=== PATIENT | female | born 1990 | race Caucasian/White ===

== ENCOUNTER → 2016-07-05 | Outpatient (CLI) | payer BC ==
[~2016-07-05] MED LIST: BCPILLS PO; INSPMPNVLG; INSULIN PUMP; NITR-5 PO; NITR1CAP16 PO; PHEN-876 PO
[2016-07-06 06:14] LABS: ESTIMATED AVERAGE GLUCOSE 128 mg/dl; HA1C FLAG Normal (Normal)
== END | disposition home or self-care (01) ==
LOC: C.LAB1850 15:29
PROVIDERS: ATTEND Internal Medicine Endocrinology, Diabetes & Metabolism
DX: E10.9 Type 1 diabetes mellitus without complications (principal)

== ENCOUNTER 2016-08-13 06:16 | Emergency (ER) | payer BC ==
[~2016-08-13] VITALS: Ht 167.6 cm; Wt 70.1 kg
[~2016-08-13 06:16] MED LIST changes: -INSPMPNVLG; -NITR1CAP16 PO
[2016-08-13 06:20] VITALS: TEMP 36.7; Ht 167.6 cm; Wt 70.1 kg
--- NOTE | 2016-08-13 06:36 | EMERGENCY ROOM VISIT NOTE ---
History Report prepared by Jn: Florina Duarte Under the Supervision of: Dr. Carlos Zavala M.D. First contact with patient: 06:28 Chief Complaint: SYNCOPE Stated Complaint: FAINTING-LIGHT HEADED-UPSET STOMACH History of Present Illness The patient is a 26 year old female who presents to the Emergency Room with complaints of a sudden syncopal episode that occurred just prior to arrival. The patient states that she woke up this morning and was preparing to change her cgm sensor. She states that she started feeling lightheaded and nauseous so she went to the bathroom. The patient states that she stumbled on her way to the bathroom. She states that she then inserted her CGM sensor and then had a loss of consciousness for 15 seconds. The patient states that her significant other caught her and laid her on the ground. She states that she also experienced ear ringing and vision disturbances. The patient denies any chest pain, shortness of breath, fever, diarrhea, or passing increased gas. The patient denies any recent issues with her blood glucose levels. She states that she tested her level and it was 174 mg/dL. The patient denies any previous syncopal episode. She states that she has been keeping up on her fluid intake. The patient reports normal menstrual cycles. Source of History: patient Onset: prior to arrival Position: other (global) Quality: other (syncopal episode) Timing: other (sudden) Associated Symptoms: + LOC, + nausea, No SOB, No chest pain, No diarrhea, No fevers Note: Associated Symptoms: vision disturbances, ear ringing, lightheadedness Review of Systems All systems have been listed, reviewed, and are negative other than those previously mentioned. Please see Additional Medical History Sheet. Past Medical & Surgical Medical Problems: (1) Diabetes mellitus type 1 Family History Patient reports no known family medical history. Social History Smoking Status: Never Smoker Smokeless Tobacco Use: No Alcohol Use: occasionally Marital Status: in relationship Housing Status: lives with significant other Occupation Status: employed Current/Historical Medications Scheduled Control Pills ( Control Pills), 1 TAB PO DAILY Insulin Aspart (novoLOG INSULIN PUMP ), 1 EA N/A UD Nitrofurantoin Monohyd Macro (Macrobid), 1 CAP PO BID Allergies Coded Allergies: No Known Allergies (Unverified , 08/13/16) Physical Exam Vital Signs Date Time Temp Pulse Resp B/P Pulse Ox O2 Delivery O2 Flow Rate FiO2 08/13/16 08:11 59 130/75 69 123/64 85 116/77 08/13/16 08:06 66 18 112/75 97 Room Air 08/13/16 07:25 81 08/13/16 06:46 Room Air 08/13/16 06:20 36.7 81 18 112/78 99 Room Air Physical Exam GENERAL: Patient awake, alert, oriented x 3. Patient follows commands. Patient does not appear toxic. Patient is adequately hydrated and well- nourished. SKIN: No erythema, pallor, cyanosis or rash HEENT: Normal head, pupils equal, reactive to light and accommodation. Ears normal. Oral cavity and posterior pharynx appear normal. Neck: Without adenopathy, no neck vein distention. LUNGS: Clear to auscultation. No wheezes, no rales, no rhonchi. HEART: No murmurs. No gallops. No rubs ABDOMEN: No masses, no rebound, no hepatomegaly or splenomegaly. EXTREMITIES: No signs of trauma. No pedal or pretibial edema. No calf or thigh tenderness. NEUROLOGIC: Cranial nerves II-XII within normal limits. No gross motor sensory function deficits. Medical Decision & Procedures Laboratory Results 08/13/16 06:40 08/13/16 06:40 Test 08/13/16 06:40 Red Blood Count 4.56 M/uL (4.2-5.4) Mean Corpuscular Volume 90.1 fL (80-100) Mean Corpuscular Hemoglobin 31.8 pg (25-34) Mean Corpuscular Hemoglobin Concent 35.3 g/dl (32-36) RDW Standard Deviation 40.8 fL (36.4-46.3) RDW Coefficient of Variation 12.4 % (11.5-14.5) Mean Platelet Volume 9.9 fL (7.4-10.4) Urine Color DK YELLOW Urine Appearance CLOUDY (CLEAR) Urine pH 6.0 (4.5-7.5) Urine Specific [place] 1.027 (1.000-1.030) Urine Protein 1+ (NEG) Urine Glucose (UA) NEG (NEG) Urine Ketones TRACE (NEG) Urine Occult Blood NEG (NEG) Urine Nitrite NEG (NEG) Urine Bilirubin NEG (NEG) Urine Urobilinogen NEG (NEG) Urine Leukocyte Esterase MODERATE (NEG) Urine WBC (Auto) >30 /hpf (0-5) Urine RBC (Auto) 0-4 /hpf (0-4) Urine Hyaline Casts (Auto) 10-30 /lpf (0-5) Urine Epithelial Cells (Auto) >30 /lpf (0-5) Urine Bacteria (Auto) 2+ (NEG) Urine Test NEG (NEG) Anion Gap 5.0 mmol/L (3-11) Est Creatinine Clear Calc Drug Dose 82.1 ml/min Estimated GFR () 92.9 Estimated GFR (Non- 80.2 BUN/Creatinine Ratio 19.0 (10-20) Calcium Level 8.4 mg/dl (8.5-10.1) Total Bilirubin 1.5 mg/dl (0.2-1) Aspartate Amino Transf (AST/SGOT) 9 U/L (15-37) Alanine Aminotransferase (ALT/SGPT) 17 U/L (12-78) Alkaline Phosphatase 54 U/L (45-117) Troponin I < 0.015 ng/ml (0-0.045) Total Protein 7.0 gm/dl (6.4-8.2) Albumin 3.7 gm/dl (3.4-5.0) Globulin 3.3 gm/dl (2.5-4.0) Albumin/Globulin Ratio 1.1 (0.9-2) Laboratory results as stated above per my review. ECG Indication: syncope Rate (beats per minute): 68 Rhythm: normal sinus (sinus arrhythmia) Findings: no acute ischemic change, other (normal axis) ED Course 0628: Past medical records reviewed. The patient was evaluated in room B10. A complete history and physical examination was performed. 0740: I reevaluated the patient and she is feeling better. I discussed all the exam findings with her and I discussed the treatment plan. She verbalized complete understanding and agreement. She is ready to go home. 0809: I reevaluated the patient and she is ready for discharge. Medical Decision Nurses notes reviewed. Medical history sheet reviewed. Differential diagnosis includes but is not limited to: vasovagal syncope, arrhythmia, metabolic disorder, TIA, CVA, hypoglycemia. The patient is here after what sounds like a vasovagal syncopal episode. Multiple labs, EKG were obtained. The patient was found to have a urinary tract infection. The patient did have some nausea prior to her syncope this morning. It is also possible that she was hypoglycemic at the time. I believe the patient is safe to return home. She was placed on a course of Macrobid. She will watch her blood sugar closely. She is to have repeat urinalysis in 5- 10 days. Impression Primary Impression: Vasovagal syncope Additional Impressions: Urinary tract infection Diabetes Scribe Attestation The scribe's documentation has been prepared under my direction and personally reviewed by me in its entirety. I confirm that the note above accurately reflects all work, treatment, procedures, and medical decision making performed by me. Departure Information Dispostion Home / Self-Care Prescriptions Nitrofurantoin Monohyd Macro (MACROBID) 100 Mg Cap 1 CAP PO BID for 10 Days, #20 CAP Prov: Carlos Zavala M.D. 08/13/16 Referrals Melissa Merino DO (PCP) Forms HOME CARE DOCUMENTATION FORM, IMPORTANT VISIT INFORMATION Patient Instructions My [facility] Additional Instructions 1 Macrobid twice a day for 5 days and then repeat urinalysis. Drink extra fluids. Check sugars frequently over the next 2-3 days. Return here immediately if you have another fainting episode. Problem Qualifiers
[2016-08-13] MEDS ORDERED: INSPMPNVLG (06:47)
[2016-08-13 06:52] LABS: HEMATOCRIT 41.1 % (37-47); MEAN CELL VOLUME 90.1 fL (80-100); MEAN CORPUSCULAR HEMOGLOBIN 31.8 pg (25-34); MEAN CORPUSCULAR HGB CONC 35.3 g/dl (32-36); MEAN PLATELET VOLUME 9.9 fL (7.4-10.4); PLATELET COUNT 269 K/uL (130-400); RED BLOOD COUNT 4.56 M/uL (4.2-5.4)
[2016-08-13 07:09] LABS: ALT/SGPT 17 U/L (12-78); AST/SGOT 9 U/L (15-37); BLOOD UREA NITROGEN 19 mg/dl (7-18); CALCIUM 8.4 mg/dl (8.5-10.1); CARBON DIOXIDE 28 mmol/L (21-32); CHLORIDE 106 mmol/L (98-107); CREATININE 0.98 mg/dl (0.60-1.20); GLUCOSE 185 mg/dl (70-99); POTASSIUM 4.3 mmol/L (3.5-5.1); SODIUM 139 mmol/L (136-145)
[2016-08-13 07:11] LABS: URINE APPEARANCE CLOUDY (CLEAR); URINE BILIRUBIN NEG (NEG); URINE COLOR DK YELLOW; URINE EPITHELIAL CELL AUTO >30 /lpf (0-5); URINE NITRITE NEG (NEG); URINE SPECIFIC GRAVITY 1.027 (1.000-1.030); UROBILINOGEN NEG (NEG); ZZUR CULT IF INDIC CLEAN CATCH YES
[2016-08-13 07:13] LABS: ALB/GLOB RATIO 1.1 (0.9-2); ALKALINE PHOSPHATASE 54 U/L (45-117)
[2016-08-13 07:15] LABS: MANUAL MICROSCOPIC REQUIRED? NO; REVIEW REQ? NO
[2016-08-13] MEDS ORDERED: NITR1CAP16 PO (07:56)
[2016-08-13 08:06] VITALS: O2SAT 97
[2016-08-13 08:11] VITALS: BP 116/77; PULSE 85
== END 2016-08-13 08:21 | disposition home or self-care (01) ==
LOC: C.EDB 06:17
DX: R55 Syncope and collapse (principal); N39.0 Urinary tract infection, site not specified; E10.9 Type 1 diabetes mellitus without complications; Z79.4 Long term (current) use of insulin

== ENCOUNTER → 2016-08-17 | Outpatient (CLI) | payer BC ==
[~2016-08-17] MED LIST changes: +INSPMPNVLG; -INSULIN PUMP; -NITR-5 PO; +NITR1CAP16 PO; -PHEN-876 PO
[2016-08-17 13:33] LABS: URINE APPEARANCE CLOUDY (CLEAR); URINE BILIRUBIN NEG (NEG); URINE COLOR DK YELLOW; URINE EPITHELIAL CELL AUTO >30 /lpf (0-5); URINE NITRITE NEG (NEG); URINE SPECIFIC GRAVITY 1.025 (1.000-1.030); UROBILINOGEN NEG (NEG); ZZUR CULT IF INDIC CLEAN CATCH YES
[2016-08-17 13:42] LABS: MANUAL MICROSCOPIC REQUIRED? NO; REVIEW REQ? NO
== END | disposition home or self-care (01) ==
LOC: C.LABSPEC 09:00
PROVIDERS: ATTEND Physician Assistant
DX: Z00.00 Encounter for general adult medical examination without abnormal findings (principal); N39.0 Urinary tract infection, site not specified

== ENCOUNTER → 2016-08-23 | Outpatient (CLI) | payer BC ==
[2016-08-23 16:50] LABS: URINE APPEARANCE CLEAR (CLEAR); URINE BILIRUBIN NEG (NEG); URINE COLOR DK YELLOW; URINE EPITHELIAL CELL AUTO 20-30 /lpf (0-5); URINE NITRITE NEG (NEG); URINE SPECIFIC GRAVITY 1.027 (1.000-1.030); UROBILINOGEN POS (NEG)
[2016-08-23 17:02] LABS: MANUAL MICROSCOPIC REQUIRED? NO; REVIEW REQ? NO
[2016-08-23 17:18] LABS: THYROID STIMULATING HORMONE 1.6 uIu/ml (0.300-4.500)
== END | disposition home or self-care (01) ==
LOC: C.LAB1850 15:34
PROVIDERS: ATTEND Physician Assistant
DX: N39.0 Urinary tract infection, site not specified (principal); R94.6 Abnormal results of thyroid function studies

== ENCOUNTER → 2016-10-19 | Outpatient (CLI) | payer BC ==
[~2016-10-19] MED LIST changes: -NITR1CAP16 PO
[2016-10-19 13:48] LABS: ESTIMATED AVERAGE GLUCOSE 123 mg/dl; HA1C FLAG Normal (Normal)
[2016-10-19 14:03] LABS: ALT/SGPT 17 U/L (12-78); BLOOD UREA NITROGEN 13 mg/dl (7-18); BUN/CREATININE RATIO 13.1 (10-20); CALCIUM 8.9 mg/dl (8.5-10.1); CARBON DIOXIDE 26 mmol/L (21-32); CHLORIDE 107 mmol/L (98-107); GLUCOSE 57 mg/dl (70-99); POTASSIUM 4.2 mmol/L (3.5-5.1); SODIUM 138 mmol/L (136-145)
[2016-10-19 14:06] LABS: ALB/GLOB RATIO 1.1 (0.9-2); ALKALINE PHOSPHATASE 47 U/L (45-117); AST/SGOT 11 U/L (15-37)
[2016-10-19 14:15] LABS: RATIO 3.6 mcg/mg (0-30.0)
== END | disposition home or self-care (01) ==
LOC: C.LABPBG 10:00
PROVIDERS: ATTEND Physician Assistant
DX: E10.9 Type 1 diabetes mellitus without complications (principal)

== ENCOUNTER → 2017-06-06 | Outpatient (CLI) | payer BC ==
[2017-06-06 18:21] LABS: ALBUMIN 3.6 gm/dl (3.4-5.0); ALT/SGPT 17 U/L (12-78); AST/SGOT 8 U/L (15-37); BLOOD UREA NITROGEN 18 mg/dl (7-18); CALCIUM 8.8 mg/dl (8.5-10.1); CARBON DIOXIDE 26 mmol/L (21-32); CREATININE 1.05 mg/dl (0.60-1.20); GLUCOSE 125 mg/dl (70-99); POTASSIUM 3.8 mmol/L (3.5-5.1); SODIUM 136 mmol/L (136-145)
[2017-06-06 18:32] LABS: ALKALINE PHOSPHATASE 46 U/L (45-117); CHOLESTEROL 158 mg/dl (0-200); LDL CHOLESTEROL CALCULATED 66 mg/dl; TOTAL PROTEIN 7.1 gm/dl (6.4-8.2)
== END | disposition home or self-care (01) ==
LOC: C.LAB1850 16:31
PROVIDERS: ATTEND Physician Assistant
DX: E10.9 Type 1 diabetes mellitus without complications (principal)

== ENCOUNTER 2018-10-10 07:24 | Inpatient (IN) ==
[2018-10-10] MEDS ORDERED: OXYTOCIN 30 UNITS/500 ML BAG IV PRN (07:33)
[2018-10-10 08:10] LABS: Hemoglobin 12.2 g/dL (12.0-16.0); Mean Platelet Volume 10.6 fL (7.4-10.4); Platelet Count 210 K/uL (130-400); RDW Standard Deviation 42.2 fL (36.4-46.3); Red Blood Count 3.82 M/uL (4.2-5.4); White Blood Count 14.21 K/uL (4.8-10.8)
--- NOTE | 2018-10-10 08:19 | History & Physical Report ---
Date of Service October 10, 2018 Assessment & Plan (1) Supervision of high risk in third trimester: 28-year-old G1, P0-0-0-0, currently at 39 weeks 5 days gestational age, presents for induction of labor secondary to T1DM. PLAN: -Fetus currently category 1 tracing. We will continue to monitor. -We will start oxytocin per regular protocol. -Vitals currently within normal limits. We will continue to monitor. -Blood Type A+, Rubella Immune, GBS negative. History of Present Illness Primary Care Provider: ANDREW PCP DATE OF ADMISSION: 10/10/2018 BRIEF HISTORY: 28-year-old G2, P0-0-0-0, currently at 39 weeks 5 days gestational age with ALBERT of 10/12/2018 by first trimester ultrasound. The patient presented to labor and delivery for a scheduled induction of labor. She presented yesterday evening for cervical ripening via Trujillo balloon and then was sent home and represents today. At time of admission, the patient was denying any regular contractions, vaginal bleeding, leakage of fluid, and reported normal movement. COURSE: The patient presented for care at approximately 7 weeks' gestational age. She has been normotensive throughout. She has had negative proteinuria (other than September 30 ER visit, see below), negative glucosuria, total weight gain for the is approximately 29 pounds. Normal Echo 06/26. Negative glucola at 28 weeks. Of note, pt is a type 1 diabetic that is managed with an insulin pump. Pt has been followed by diabetic protocol for this and has been under excellent control. Additionally, is also complicated by a left renal calculus that was evaluated in the emergency department September 30, 2018. Urinalysis showed +2 blood, +2 ketones, and +1 protein. Pt was sent home on PO antibiotics (Omnicef) and Tylenol for pain, which was well managed. Recently finished course of Omnicef 10/09. Pt was able to pass stone spontaneously. COMPLICATIONS: Type 1 DM, well controlled with insulin pump. Renal Calculus, managed as above. LABS: Blood type A positive, antibody screen negative, RPR nonreactive, rubella immune, hep B surface antigen negative, HIV negative, chlamydia negative, gonorrhea negative, cystic fibrosis carrier screening negative. Anatomy scan normal and complete. Cell free DNA within normal limits. Hep group B strep negative. GYNECOLOGIC HISTORY: LMP 12/29/2017, age of menarche 13. The patient reports regular 28 day cycles with normal duration and quantity of menses. Denies any history of sexually transmitted infections or abnormal Paps. PAST MEDICAL HISTORY: Significant for T1DM, currently on pump, otherwise unremarkable. PAST SURGICAL HISTORY: [place] Teeth. MEDICATIONS: 1. Tabs. 2. Novolog Insulin Pump 3. ASA 81 4. Omnicef finished course 10/09 ALLERGIES: NKDA SOCIAL HISTORY: The patient denies tobacco, alcohol or illicit drug use. FAMILY HISTORY: Maternal Aunt- Breast Ca. Otherwise noncontributory. Allergies Allergy/AdvReac Type Severity Reaction Status Date / Time No Known Allergies Allergy Verified 10/10/18 07:48 Home Medications Home Medications Medication Instructions Recorded Confirmed Type aspirin 81 mg PO DAILY 10/09/18 10/10/18 History insulin aspart U-100 [Novolog 100 unit SUBCUT DAILY 10/09/18 10/10/18 History U-100 Insulin aspart] vit-iron fum-folic ac 1 tab PO DAILY 10/09/18 10/10/18 History [ Vitamin] Patient History Medical History Supervision of high risk in third trimester Diabetes mellitus type 1 (Chronic) Kidney stone on left side passed approx 1 week ago at 39 weeks [place] teeth extracted Social History Preferred Language: [employer] [employer] Service [employer] Required: No Beliefs That Will Affect Care: None marital status: Current Living Situation: Spouse Feels Safe at Home: Yes Safety Concerns: Feels Safe At This Time Smoking Status: Never smoker Second Hand Exposure: No Hx Alcohol Use: No Hx Substance Use: No Review of Systems All systems reviewed & are unremarkable except as noted in HPI & below Physical Exam Constitutional: WD/WN, vitals as above Respiratory: normal respiratory effort, lungs clear to auscultation Cardiovascular: RRR, no murmur, no edema Gastrointestinal (Abdomen): Soft, nontender, gravid Skin: no rashes, warm and dry Psychiatric: A+Ox3, euthymic affect Genitourinary: Please see attending findings for dilation, effacement, station. Lymphatic: no LE swelling, no calf tenderness Results & Data Vital Signs (Past 12 Hours) Vital Signs Temp Pulse Resp BP 10/10/18 07:41 100 H 118/67 10/10/18 07:40 36.9 C 16 Supervising Physician Co-Signing Physician Notes Resident Physician Supervision Note: I was present with Dr. Pineda during the history and exam. I discussed the case with the resident and agree with the findings and plan as documented in the note. Any exceptions or clarifications are listed here: Type 1 diabetic at 39 (+) weeks GA for term induction. Cervical trujillo placed last PM, has not dislo dged. Pt with insulin pump. Will start pitocin and leave trujillo in place for now. Pt will manage sugars via pump with MD guidance. Will start insulin pump if needed. Documented By: Carlos Dawkins Jr, MD, FACOG Resident Activity Tracking Resident Involvement: Resident Care Provided Care Provided: OB Delivery
[2018-10-10 08:27] LABS: Mean Corpuscular Hgb Conc 35.9 g/dL (32-36)
[2018-10-10] MEDS: LACTATED RINGER'S 1,000 ML IV PRN ×2 (08:40→15:53)
[2018-10-10] MEDS: OXYTOCIN 30 UNITS/500 ML BAG IV PRN (08:41)
[2018-10-10] MEDS ORDERED: Nursing to Pharmacy Communication ONE (09:06)
[2018-10-10] MEDS ORDERED: DEXTROSE 50% 50 ML SYRINGE IV PRN (09:15)
[2018-10-10] MEDS ORDERED: INSULIN ASPART 100 UNITS/ML VIAL SC PRN (09:15)
[2018-10-10] MEDS ORDERED: GLUCOSE 40% GEL 15 GM TUBE PO PRN (09:15)
[2018-10-10] MEDS ORDERED: CARBOHYDRATES FOR HYPOGLYCEMIA PO PRN (09:15)
[2018-10-10] MEDS ORDERED: GLUCOSE 10 TABS/TUBE PO PRN (09:15)
[2018-10-10] MEDS ORDERED: GLUCAGON FOR INJ 1 MG VIAL SQ PRN (09:15)
[2018-10-10] MEDS: NovoLOG INSULIN PUMP SCH ×2 (11:50→16:54)
--- NOTE | 2018-10-10 13:28 | Labor Progress Brief Note ---
Date of Service October 10, 2018 Subjective aware of ctx's, trujillo dislodged Assessment & Plan (1) Supervision of high risk in third trimester: - tracing Cat I - sugars with good control - too high to rupture - continue pitocin Physical Exam Genitourinary: /-3, posterior Results & Data Vital Signs (Past 12 Hours) Vital Signs Temp Pulse Resp BP 10/10/18 12:42 81 113/75 10/10/18 11:41 88 113/74 10/10/18 11:04 36.8 C 16 10/10/18 10:41 90 118/77 10/10/18 09:41 89 122/72 10/10/18 08:40 92 H 122/76 10/10/18 07:41 100 H 118/67 10/10/18 07:40 36.9 C 16
--- NOTE | 2018-10-10 19:09 | Labor Progress Brief Note ---
Date of Service October 10, 2018 Subjective aware of the ctx's, 08/29 Assessment & Plan (1) Supervision of high risk in third trimester: - tracing Cat I - Pitocin at 19, ctx's q3 minutes - no cervical change, vtx to high/posterior to allow rupture of membranes - discussed with patient/ - recommend d/c pit, dinner and re-start pit at 0500 - will allow better sugar management - all questions answered. Physical Exam Genitourinary: Cervix: no change Results & Data Vital Signs (Past 12 Hours) Vital Signs Temp Pulse Resp BP 10/10/18 18:41 77 102/63 10/10/18 17:40 82 122/80 10/10/18 16:40 79 121/66 10/10/18 15:35 86 125/85 10/10/18 15:08 36.8 C 16 10/10/18 14:41 77 121/73 10/10/18 13:41 80 114/64 10/10/18 12:42 81 113/75 10/10/18 11:41 88 113/74 10/10/18 11:04 36.8 C 16 10/10/18 10:41 90 118/77 10/10/18 09:41 89 122/72 10/10/18 08:40 92 H 122/76 10/10/18 07:41 100 H 118/67 10/10/18 07:40 36.9 C 16
[2018-10-11] MEDS: OXYTOCIN 30 UNITS/500 ML BAG IV PRN ×2 (05:11→05:12)
[2018-10-11] MEDS: NovoLOG INSULIN PUMP SCH ×5 (05:59→21:15)
--- NOTE | 2018-10-11 06:45 | Labor Progress Brief Note ---
Date of Service October 11, 2018 Assessment & Plan (1) Supervision of high risk in third trimester: - tracing Cat I - good sugar control - restart pitocin - doing well Physical Exam Genitourinary: Cervix: /-2, AROM, clear, IUPC placed Results & Data Vital Signs (Past 12 Hours) Vital Signs Temp Pulse Resp BP 10/11/18 06:15 86 116/72 10/11/18 06:00 18 10/11/18 04:35 36.9 C 18 10/11/18 04:34 93 H 115/76 10/11/18 00:05 36.6 C 18 10/11/18 00:04 94 H 110/77 10/10/18 19:11 36.6 C 18 10/10/18 19:10 81 136/78
[2018-10-11] MEDS: LACTATED RINGER'S 1,000 ML IV PRN ×4 (09:33→22:34)
[2018-10-11] MEDS ORDERED: BUPIVACAINE 0.25% 30 ML VIAL ONE (09:52)
[2018-10-11] MEDS ORDERED: fentaNYL citrate 100 MCG/2 ML VIAL ONE ×2 (09:53→23:42)
[2018-10-11] MEDS ORDERED: ePHEDrine sulfate 50 MG/ML AMP ONE (09:53)
[2018-10-11] MEDS ORDERED: fentaNYL 2MCG/ML ROPIV 1.25MG/ML 100 ML BAG EPI ONE (09:54)
[2018-10-11] MEDS ORDERED: ONDANSETRON INJ 2 MG/ML 2 ML VIAL IV PRN (09:56)
[2018-10-11] MEDS ORDERED: NALBUPHINE HCL INJ 10 MG/ML AMP IV PRN (09:56)
[2018-10-11] MEDS ORDERED: ePHEDrine sulfate 50 MG/ML AMP IV PRN (09:56)
[2018-10-11] MEDS ORDERED: DiphenhydrAMINE HCL 50 MG/ML VIAL IV PRN (09:56)
[2018-10-11] MEDS ORDERED: NALOXONE HCL 0.4 MG/1 ML VIAL/CARP IV PRN (09:56)
[2018-10-11] MEDS ORDERED: NALOXONE HCL 1 MG in SODIUM CHLORIDE 0.9% 1000ML 1,000 ML IV PRN (09:56)
--- NOTE | 2018-10-11 10:24 | Anesthesiology Consultation ---
Date of Service October 11, 2018 Assessment & Plan (1) Encounter for pre-operative examination: Chart Review Chart Review: Patient NOT seen in Pre Admission Testing and Acceptable Risk for Labor Epidural Consults Requested none History Height/Weight Height: 5 ft 6 in Weight: 83.915 kg Allergies Allergy/AdvReac Type Severity Reaction Status Date / Time No Known Allergies Allergy Verified 10/10/18 07:48 Medications Home Medications Medication Instructions Recorded Confirmed Last Taken aspirin 81 mg PO DAILY 10/09/18 10/10/18 10/09/18 22:00 insulin aspart U-100 [Novolog 100 unit SUBCUT DAILY 10/09/18 10/10/18 10/10/18 07:00 U-100 Insulin aspart] vit-iron fum-folic ac 1 tab PO DAILY 10/09/18 10/10/18 10/10/18 07:00 [ Vitamin] Active Medications Generic Name Dose Route Start Last Admin Trade Name Freq PRN Reason Stop Dose Admin Lactated Ringer's 1,000 mls @ 125 mls/hr 10/10/18 07:33 10/11/18 10:27 Lr IV 10/12/18 07:32 125 mls/hr .Q8H PRN Administration L&D Protocol Protocol Oxytocin 30 units in 500 mls @ 9 mls/hr 10/10/18 07:36 10/11/18 08:00 Pitocin IV 10/12/18 07:35 0.54 units/hr .Q24H PRN 9 mls/hr Labor Induction/Augmentation Titration Protocol 0.54 UNITS/HR Insulin Aspart 1 ea 10/10/18 11:30 10/11/18 08:52 Novolog Insulin Pump N/A 11/09/18 11:29 Not Given ACHS CLEMENTE Protocol Past Medical History Medical History Supervision of high risk in third trimester Diabetes mellitus type 1 (Chronic) Kidney stone on left side passed approx 1 week ago at 39 weeks [place] teeth extracted Exercise / Class Metabolic Activity II 4-5 Yardwork/Stairs/Walk up hill Past Surgical History wisdom teeth Past Anesthesia History No Hx of Anesthesia Complications and No Family Hx of Anesthesia Complications History of PONV No Hx of PONV and No Hx of Motion Sickness Social History Smoking Status: Never smoker Hx Alcohol Use: No Hx Substance Use: No substance use type: does not use Physical Exam Vital Signs Last Vital Signs Temp 36.7 C 10/11/18 10:04 Pulse 80 10/11/18 10:04 Resp 20 10/11/18 10:04 BP 126/81 10/11/18 10:04 Testing Laboratory Results 10/10/18 07:54 10/11/18 10/11/18 10/11/18 08:46 04:35 00:25 POC Glucose 81 108 H 80
[2018-10-11] MEDS: fentaNYL 2MCG/ML ROPIV 1.25MG/ML 100 ML BAG EPI PRN (20:05)
[2018-10-11] MEDS ORDERED: LIDOCAINE HCL 2% MPF (LOCAL) 5 ML VIAL INFIL ONE (23:42)
[2018-10-12] MEDS: LACTATED RINGER'S 1,000 ML IV PRN (03:12)
[2018-10-12] MEDS: fentaNYL 2MCG/ML ROPIV 1.25MG/ML 100 ML BAG EPI PRN (03:14)
--- NOTE | 2018-10-12 05:47 | Obstetrical Progress Note ---
Date of Service October 12, 2018 Subjective patient has now progressed to full dilation after having a persistent anterior lip that was resolved with knee chest position. Moderate variables were resolved with amnioinfusion. She has now been pushing for over 2 hours & is showing signs of maternal exhaustion. the moderate variables have returned with good recovery in between. presenting part with caput at introitus and head at +3 station. will allow to push further. I offered vaccuum assistance and she is agreeable. Results & Data Vital Signs (Past 12 Hours) Vital Signs Temp Pulse Resp BP Pulse Ox 10/12/18 05:40 78 92 10/12/18 05:36 73 122/59 L 100 10/12/18 05:31 108 H 100 10/12/18 05:26 73 100 10/12/18 05:21 85 100 10/12/18 05:20 113 H 92 10/12/18 05:16 101 H 100 10/12/18 05:11 102 H 87 L 10/12/18 05:06 80 100 10/12/18 05:05 99 H 89 L 10/12/18 05:01 99 H 100 10/12/18 04:56 91 H 100 10/12/18 04:51 120 H 100 10/12/18 04:46 84 100 10/12/18 04:41 94 H 100 10/12/18 04:36 98 H 99 10/12/18 04:33 99 H 84 L 10/12/18 04:31 122 H 99 10/12/18 04:29 36.9 C 10/12/18 04:28 99 H 89 L 10/12/18 04:26 113 H 98 10/12/18 04:21 124 H 99 10/12/18 04:16 115 H 98 10/12/18 04:11 108 H 99 10/12/18 04:06 101 H 100 10/12/18 04:01 119 H 100 10/12/18 03:56 116 H 99 10/12/18 03:52 119 H 92 10/12/18 03:51 99 H 100 10/12/18 03:46 96 H 100 10/12/18 03:41 81 99 10/12/18 03:36 107 H 98 10/12/18 03:31 85 100 10/12/18 03:30 96 H 93 10/12/18 03:26 78 100 10/12/18 03:21 87 98 10/12/18 03:16 93 H 100 10/12/18 03:11 92 H 95 06 03:07 83 92 10/12/18 03:06 72 100 10/12/18 03:04 74 122/85 10/12/18 03:01 78 99 10/12/18 02:56 100 H 100 10/12/18 02:51 75 100 10/12/18 02:46 87 100 10/12/18 02:41 77 100 10/12/18 02:36 89 100 10/12/18 02:34 81 126/74 10/12/18 02:31 72 99 10/12/18 02:26 106 H 100 10/12/18 02:23 37.0 C 10/12/18 02:21 90 99 10/12/18 02:20 117 H 91 10/12/18 02:16 91 H 99 10/12/18 02:11 89 100 10/12/18 02:06 79 99 10/12/18 02:01 78 99 10/12/18 01:56 91 H 96 10/12/18 01:51 80 97 10/12/18 01:46 88 98 10/12/18 01:41 84 97 10/12/18 01:36 81 97 10/12/18 01:34 83 107/66 10/12/18 01:31 115 H 99 10/12/18 01:26 78 97 10/12/18 01:21 82 98 10/12/18 01:16 82 98 10/12/18 01:11 84 97 10/12/18 01:06 97 H 97 10/12/18 01:05 107 H 92 10/12/18 01:01 77 96 10/12/18 00:59 76 91 10/12/18 00:56 114 H 95 10/12/18 00:51 85 98 10/12/18 00:46 73 96 10/12/18 00:41 73 96 06 00:36 68 143/66 H 96 10/12/18 00:31 69 96 06 00:26 70 96 06 00:21 69 96 10/12/18 00:16 74 98 10/12/18 00:11 70 95 10/12/18 00:06 65 96 06/23/19 00:05 72 132/68 10/12/18 00:01 94 H 97 10/11/18 23:56 85 97 10/11/18 23:51 67 152/68 H 96 10/11/18 23:49 60 152/72 H 10/11/18 23:47 88 143/70 H 10/11/18 23:46 90 97 10/11/18 23:41 71 96 10/11/18 23:36 69 96 10/11/18 23:35 66 145/69 H 10/11/18 23:31 70 96 10/11/18 23:26 67 96 10/11/18 23:21 69 96 10/11/18 23:16 69 98 10/11/18 23:11 75 99 10/11/18 23:06 70 97 10/11/18 23:04 37.1 C 63 146/71 H 10/11/18 23:01 69 96 10/11/18 22:56 68 98 10/11/18 22:51 67 97 10/11/18 22:46 66 97 10/11/18 22:41 70 97 10/11/18 22:36 76 145/69 H 100 10/11/18 22:31 77 98 10/11/18 22:26 78 96 10/11/18 22:21 72 98 10/11/18 22:16 72 96 10/11/18 22:11 75 96 10/11/18 22:06 74 97 10/11/18 22:04 74 119/62 10/11/18 22:01 73 98 10/11/18 21:56 76 99 10/11/18 21:51 78 98 10/11/18 21:46 76 98 10/11/18 21:41 78 99 10/11/18 21:36 71 123/60 98 10/11/18 21:31 114 H 98 10/11/18 21:26 109 H 100 10/11/18 21:21 98 H 98 10/11/18 21:16 111 H 98 10/11/18 21:11 97 H 99 10/11/18 21:06 106 H 104/56 L 100 10/11/18 21:01 37.1 C 95 H 100 10/11/18 20:56 85 100 10/11/18 20:51 89 100 10/11/18 20:46 91 H 99 10/11/18 20:41 97 H 100 06 20:36 92 H 100 06 20:34 83 134/76 06 20:31 83 98 06 20:26 85 100 10/11/18 20:21 83 100 10/11/18 20:16 80 99 10/11/18 20:11 91 H 100 10/11/18 20:06 87 100 10/11/18 20:04 82 113/59 L 10/11/18 20:01 88 100 10/11/18 19:56 95 H 100 10/11/18 19:51 80 99 10/11/18 19:46 86 100 10/11/18 19:41 85 100 10/11/18 19:36 83 100 10/11/18 19:34 80 113/59 L 10/11/18 19:31 96 H 100 10/11/18 19:26 83 99 10/11/18 19:21 77 100 10/11/18 19:16 79 100 10/11/18 19:11 86 99 10/11/18 19:06 84 125/64 100 10/11/18 19:01 37.3 C 81 18 100 10/11/18 18:56 75 100 10/11/18 18:51 78 100 10/11/18 18:46 72 100 10/11/18 18:41 81 100 10/11/18 18:36 77 100 06 18:35 73 113/63 10/11/18 18:31 83 100 19 18:26 76 100 0619 18:21 75 100 0619 18:16 74 100 0619 18:11 76 100 062219 18:06 78 100 0619 18:04 83 107/64 19 18:01 78 100 06/19 17:56 89 100 19 17:51 72 100 19 17:46 82 100
[2018-10-12] MEDS ORDERED: OXYCODONE/ACETAMINOPHEN 5mg/325mg TAB PO PRN (07:15)
[2018-10-12] MEDS ORDERED: BENZOCAINE 20% AER SPR 82.5 GM CAN EXT PRN (07:15)
[2018-10-12] MEDS ORDERED: OXYTOCIN 10 UNITS/ML VIAL IM ONE (07:15)
[2018-10-12] MEDS ORDERED: SUPERCREAM 0.870% 15 GM JAR EXT PRN (07:15)
[2018-10-12] MEDS ORDERED: DIPHTHERIA/TETANUS/PERTUSSIS 0.5 ML SYR/VIAL IM ONE (07:15)
[2018-10-12] MEDS ORDERED: OXYTOCIN 30 UNITS/500 ML BAG IV PRN (07:15)
[2018-10-12] MEDS ORDERED: BISACODYL 10 MG SUPP PR PRN (07:15)
[2018-10-12] MEDS ORDERED: HYDROCORTISONE ACETATE 25 MG SUPP PR PRN (07:15)
[2018-10-12] MEDS ORDERED: ACETAMINOPHEN 325 MG TAB PO PRN (07:15)
--- NOTE | 2018-10-12 08:28 | Delivery Summary ---
DATE OF OPERATION: 10/12/2018 The patient is a 28-year-old 2, para 0-0-1-0 white female with known insulin-dependent diabetes mellitus, prior to , who presents at 39 and 5/7 weeks for an induction of labor because of her preexisting diabetes. She received a cervical [place] balloon on the evening of 10/09. She then received Pitocin augmentation over the day of the because of minimal cervical change and the cervical balloon still in place, the Pitocin was stopped, so she could eat. The Pitocin was then resumed in the morning of 10/11. Membranes were ruptured at that point. She requested epidural analgesia at 5 cm dilation and IUPC had been placed at that time for management of her Pitocin. She progressed to full dilation when moderate to severe variables started to occur. Amnioinfusion was started which resolved the variables. With multiple position changes she pushed for 2-1/2 hours. At that point, the caput was visible and the head was at +3 station. The patient was exhausted from pushing and effort was ineffective at this point. Secondarily, the deep variables returned. Vacuum assisted delivery was discussed and she is agreeable as was her . The vacuum was placed through 2 contractions easily bringing the head to the perineum. She then delivered the rest of the head occiput anterior on her own. There was a tight nuchal cord present which was cut and clamped prior to delivering the rest of the . The rest of the delivered easily and was initially placed on the mother's abdomen, but was then taken to the baby bed for further resuscitation which has been documented elsewhere. The placenta was then expressed intact with a 3-vessel cord. Bilateral sulcal tears were repaired with 3-0 chromic in the usual fashion. 1% lidocaine was used to anesthetize the area of the repair. Estimated blood loss was 500 mL. Mother and were then doing well after delivery. bleeding was controlled initially with IV dilute Pitocin; however, her IV infiltrated and she received 10 units of IM Pitocin as well. I attest to the content of the Intraoperative Record and any orders documented therein. Any exceptions are noted below. MTDD
[2018-10-12] MEDS ORDERED: INSULIN ASPART U SQ SCH (09:00)
--- NOTE | 2018-10-12 09:16 | Anesthesia Procedure Note ---
Date of Service October 12, 2018 Anesthesia Post Epidural Note Vital Signs Vital Signs: Temp Pulse Resp BP Pulse Ox 36.9 C 90 18 139/83 100 10/12/18 04:29 10/12/18 09:03 10/11/18 19:01 10/12/18 09:03 10/12/18 06:22 Pain Intensity Bilateral Abdomen: Pain Intensity: 1 Notes Mental Status: alert / awake / arousable Nausea / Vomiting: adequately controlled Pain: adequately controlled Airway Patency, RR, SpO2: stable & adequate BP & HR: stable & adequate Hydration State: stable & adequate Neuraxial Anesthesia: sensory block resolved Anesthetic Complications: no major complications apparent Epidural: Removed without complications and With tip intact Notes: Epidural Catheter removed without complications. Catheter tip intact. Site clean with no bleeding present. Nurse at bedside. Patient tolerated well
[2018-10-12] MEDS: NovoLOG INSULIN PUMP SCH ×3 (09:21→21:11)
[2018-10-12] MEDS: PRENATAL VITAMIN 1 TAB PO SCH (10:28)
[2018-10-12] MEDS: DOCUSATE SODIUM 100 MG CAP PO SCH ×2 (10:29→21:10)
[2018-10-13 07:00] LABS: Hematocrit (blood only) 27.4 % (37-47); Hemoglobin 9.7 g/dL (12.0-16.0); Mean Corpuscular Hgb Conc 35.4 g/dL (32-36); Mean Corpuscular Volume 89.5 fL (80-100); Mean Platelet Volume 9.9 fL (7.4-10.4); Platelet Count 185 K/uL (130-400); RDW Coefficient of Variation 13.1 % (11.5-14.5); RDW Standard Deviation 42.5 fL (36.4-46.3); Red Blood Count 3.06 M/uL (4.2-5.4); White Blood Count 18.17 K/uL (4.8-10.8)
--- NOTE | 2018-10-13 07:00 | Obstetrical Progress Note ---
Date of Service <Brandon Pineda, DO - Last Filed: 10/13/18 07:05> October 13, 2018 Assessment & Plan <Brandon Pineda DO - Last Filed: 10/13/18 07:05> (1) (spontaneous vaginal delivery): -vital signs reviewed and WNL -Hgb 9.7 --> ferrous sulfate -Blood type: A+, GBS-, Rubella Immune -pt doing well clinically -encourage ambulation, monitor and control pain with motrin tylenol, cont regular diet, monitor lochia -cont encourage breast feeding -anticipate d/c tomorrow Subjective <Brandon Pineda, DO - Last Filed: 10/13/18 07:05> 28 y/o PPD1 found in bed this morning in NAD. Reports no acute overnight events. Pt states that she has no pain other than appropriate soreness. Tolerating PO intake without N/V. Able to ambulate without issue. She is breast feeding without issue. No issues with voiding, no BM yet. No other acute concerns or complaints. Review of Systems All systems reviewed & are unremarkable except as noted in HPI & below Physical Exam <Brandon Pineda, DO - Last Filed: 10/13/18 07:05> Constitutional WD/WN, vitals as above Respiratory normal respiratory effort, lungs clear to auscultation Cardiovascular RRR, no murmur, no edema Gastrointestinal (Abdomen) mild abd tenderness fundus 1 below U, please correlate with attending findings Skin no rashes, warm and dry Psychiatric A+Ox3, euthymic affect Lymphatic no LE swelling, no calf tenderness Results & Data <Brandon Pineda, DO - Last Filed: 10/13/18 07:05> Vital Signs (Past 12 Hours) Vital Signs Temp Pulse Resp BP 10/13/18 04:20 36.7 C 80 18 104/69 10/13/18 00:15 36.6 C 90 18 115/74 10/12/18 20:05 36.8 C 106 H 20 118/71 Laboratory Results Laboratory Results - last 24 hr 10/12/18 10/12/18 10/13/18 12:56 16:53 05:53 WBC RBC Hgb Hct MCV MCH MCHC RDW Std Deviation RDW Coeff of [place] Plt Count MPV POC Glucose 159 H 76 57 L* 10/13/18 06:50 WBC 18.17 H RBC 3.06 L Hgb 9.7 L Hct 27.4 L MCV 89.5 MCH 31.7 MCHC 35.4 RDW Std Deviation 42.5 RDW Coeff of [place] 13.1 Plt Count 185 MPV 9.9 POC Glucose Medications Administered Current Inpatient Medications Acetaminophen (Tylenol) 650 mg PO Q6H PRN PRN Reason: Pain/MEZA/Fever Stop: 11/11/18 07:14 Benzocaine (Dermoplast Pain Relieving [place]) 1 appln EXT PRN PRN PRN Reason: Perineal Discomfort Stop: 11/11/18 07:14 Last Admin: 10/12/18 10:29 Dose: 1 appln Documented by: Bisacodyl (Dulcolax) 5 mg PO 1999 [facility] Stop: 10/13/18 20:01 Bisacodyl (Dulcolax) 10 mg NE DAILY PRN PRN Reason: No BM on 2nd post- day Stop: 11/11/18 07:14 Cocaine HCl (Supercream 0.870%) 1 gm EXT BID PRN PRN Reason: Hemorrhoidal Inflammation Stop: 10/26/18 07:14 Last Admin: 10/12/18 10:28 Dose: 1 gm Documented by: Dextrose (Dextrose 50%) 25 - 50 ml IV UD PRN; Protocol PRN Reason: Hypoglycemia Protocol Stop: 11/09/18 09:14 Docusate Sodium (Colace) 100 mg PO BID [facility] Stop: 11/11/18 08:59 Last Admin: 10/12/18 21:10 Dose: 100 mg Documented by: Glucagon (Glucagen) 1 mg SQ UD PRN; Protocol PRN Reason: Hypoglycemia Protocol Stop: 11/09/18 09:14 Glucose (Glucose 40%) 15 - 30 gm PO UD PRN; Protocol PRN Reason: Hypoglycemia Protocol Stop: 11/09/18 09:14 Glucose (Dex4 Glucose) 4 - 8 tabs PO UD PRN; Protocol PRN Reason: Hypoglycemia Protocol Stop: 11/09/18 09:14 Hydrocortisone (Anusol Hc) 25 mg NE BID PRN PRN Reason: Hemorrhoidal Inflammation Stop: 11/11/18 07:14 Oxytocin (Pitocin) 30 units in 500 mls @ 333.333 mls/hr IV .Q1H30M PRN; Protocol PRN Reason: Bleeding Control Stop: 11/09/18 07:32 Oxytocin (Pitocin) 30 units in 500 mls @ 21 mls/hr IV .[id number] PRN; Protocol PRN Reason: Labor Induction/Augmentation Stop: 11/09/18 07:35 Last Titration: 10/12/18 03:46 Dose: 1.26 units/hr, 21 mls/hr Documented by: Oxytocin (Pitocin) 30 units in 500 mls @ 333.333 mls/hr IV .Q1H30M PRN; Protocol PRN Reason: Bleeding Control Stop: 11/11/18 07:14 Ibuprofen (Motrin) 600 mg PO Q4H PRN PRN Reason: Pain/MEZA/Cramping/Fever Stop: 11/11/18 07:14 Insulin Aspart (Novolog Insulin Pump) 1 ea N/A ACHS [facility]; Protocol Stop: 11/09/18 11:29 Last Admin: 10/12/18 21:11 Dose: Not Given Documented by: Insulin Aspart (Novolog Aspart) 0 units SC PRN PRN PRN Reason: Hyperglycemia Protocol Stop: 11/09/18 09:14 Miscellaneous (Carbohydrates For Hypoglycemia) 15 - 30 gm PO UD PRN PRN Reason: Hypoglycemia Treatment Stop: 11/09/18 09:14 Oxycodone/Acetaminophen (Percocet 5mg/325mg) 1 tab PO Q4H PRN PRN Reason: Pain not relieved by... Stop: 10/26/18 07:14 Prenat Multivit/Education Rn/Iron/Folic Ac ( Vitamin) 1 tab PO [facility] Stop: 11/11/18 08:59 Last Admin: 10/12/18 10:28 Dose: 1 tab Documented by: <Tania Cortez MD, FACOG - Last Filed: 10/13/18 07:10> Co-Signing Physician Notes Resident Physician Supervision Note: I interviewed and examined the patient. Discussed with Dr. Traci Pineda and agree with findings and plan as documented in the note. Any exceptions or clarifications are listed here: [None] Documented By: Tania Cortez MD, FACOG Resident Activity Tracking <Brandon Pineda, DO - Last Filed: 10/13/18 07:05> Resident Involvement: Resident Care Provided Care Provided: Adult Hospital Medicine
[2018-10-13] MEDS: FERROUS SULFATE 325 MG TAB PO SCH (08:42)
[2018-10-13] MEDS: DOCUSATE SODIUM 100 MG CAP PO SCH ×2 (08:42→20:03)
[2018-10-13] MEDS: PRENATAL VITAMIN 1 TAB PO SCH (08:42)
[2018-10-13] MEDS: IBUPROFEN 600 MG TAB PO PRN (08:42)
[2018-10-13] MEDS: NovoLOG INSULIN PUMP SCH ×2 (09:56→12:00)
[2018-10-13] MEDS ORDERED: BISACODYL 5 MG TABEC PO SCH (20:00)
[2018-10-14 06:17] LABS: Hemoglobin 9.2 g/dL (12.0-16.0)
--- NOTE | 2018-10-14 06:39 | Obstetrical Progress Note ---
Date of Service <Brandonkirti Pineda - Last Filed: 10/14/18 06:42> October 14, 2018 Assessment & Plan <Brandonsagar Pineda DO - Last Filed: 10/14/18 06:42> (1) (spontaneous vaginal delivery): -vital signs reviewed and WNL -last Hgb 9.7 --> ferrous sulfate -Blood type: A+, GBS-, Rubella Immune -pt doing well clinically -encourage ambulation, monitor and control pain with motrin tylenol, cont regular diet, monitor lochia -cont encourage breast feeding -plan for d/c today Subjective <Brandonsagar Pineda DO - Last Filed: 10/14/18 06:42> 28 y/o PPD2 found in bed this morning in NAD. Reports no acute overnight events. Pt states that she has no pain other than appropriate soreness. Tolerating PO intake without N/V. Able to ambulate without issue. She is breast feeding without issue. No issues with voiding, no BM yet but passing gas. Pt notes hemorrhoid, has tried cream which seems to have helped (decreasing in size and pain), but has not tried sitz bath. No other acute concerns or complaints. Pt ok with plan for d/c today. Review of Systems All systems reviewed & are unremarkable except as noted in HPI & below Physical Exam <Brandonkirti Pineda - Last Filed: 10/14/18 06:42> Constitutional WD/WN, vitals as above Respiratory normal respiratory effort, lungs clear to auscultation Cardiovascular RRR, no murmur, no edema Gastrointestinal (Abdomen) mild abd tenderness Fundus at U, please correlate with attending findings Skin no rashes, warm and dry Psychiatric A+Ox3, euthymic affect Lymphatic no LE swelling, no calf tenderness Results & Data <Brandon Pineda DO - Last Filed: 10/14/18 06:42> Vital Signs (Past 12 Hours) Vital Signs Temp Pulse Resp BP Pulse Ox 10/13/18 23:14 36.8 C 85 16 121/76 99 10/13/18 19:19 36.7 C 85 18 127/75 99 Laboratory Results Laboratory Results - last 24 hr 10/13/18 10/13/18 10/14/18 00:48 06:50 05:52 WBC 18.17 H RBC 3.06 L Hgb 9.7 L 9.2 L Hct 27.4 L 26.0 L MCV 89.5 MCH 31.7 MCHC 35.4 RDW Std Deviation 42.5 RDW Coeff of [place]ira 13.1 Plt Count 185 MPV 9.9 POC Glucose 112 H Medications Administered Current Inpatient Medications Acetaminophen (Tylenol) 650 mg PO Q6H PRN PRN Reason: Pain/MEZA/Fever Stop: 11/11/18 07:14 Benzocaine (Dermoplast Pain Relieving [place]) 1 appln EXT PRN PRN PRN Reason: Perineal Discomfort Stop: 11/11/18 07:14 Last Admin: 10/12/18 10:29 Dose: 1 appln Documented by: Bisacodyl (Dulcolax) 10 mg SD DAILY PRN PRN Reason: No BM on 2nd post- day Stop: 11/11/18 07:14 Cocaine HCl (Supercream 0.870%) 1 gm EXT BID PRN PRN Reason: Hemorrhoidal Inflammation Stop: 10/26/18 07:14 Last Admin: 10/12/18 10:28 Dose: 1 gm Documented by: Dextrose (Dextrose 50%) 25 - 50 ml IV UD PRN; Protocol PRN Reason: Hypoglycemia Protocol Stop: 11/09/18 09:14 Docusate Sodium (Colace) 100 mg PO BID [facility] Stop: 11/11/18 08:59 Last Admin: 10/13/18 20:03 Dose: 100 mg Documented by: Ferrous Sulfate (Feosol) 325 mg PO QAM [facility] Stop: 11/12/18 08:59 Last Admin: 10/13/18 08:42 Dose: 325 mg Documented by: Glucagon (Glucagen) 1 mg SQ UD PRN; Protocol PRN Reason: Hypoglycemia Protocol Stop: 11/09/18 09:14 Glucose (Glucose 40%) 15 - 30 gm PO UD PRN; Protocol PRN Reason: Hypoglycemia Protocol Stop: 11/09/18 09:14 Glucose (Dex4 Glucose) 4 - 8 tabs PO UD PRN; Protocol PRN Reason: Hypoglycemia Protocol Stop: 11/09/18 09:14 Hydrocortisone (Anusol Hc) 25 mg SD BID PRN PRN Reason: Hemorrhoidal Inflammation Stop: 11/11/18 07:14 Oxytocin (Pitocin) 30 units in 500 mls @ 333.333 mls/hr IV .Q1H30M PRN; Protocol PRN Reason: Bleeding Control Stop: 11/09/18 07:32 Oxytocin (Pitocin) 30 units in 500 mls @ 21 mls/hr IV .[id number] PRN; Protocol PRN Reason: Labor Induction/Augmentation Stop: 11/09/18 07:35 Last Titration: 10/12/18 03:46 Dose: 1.26 units/hr, 21 mls/hr Documented by: Oxytocin (Pitocin) 30 units in 500 mls @ 333.333 mls/hr IV .Q1H30M PRN; Protocol PRN Reason: Bleeding Control Stop: 11/11/18 07:14 Ibuprofen (Motrin) 600 mg PO Q4H PRN PRN Reason: Pain/MEZA/Cramping/Fever Stop: 11/11/18 07:14 Last Admin: 10/13/18 08:42 Dose: 600 mg Documented by: Insulin Aspart (Novolog Insulin Pump) 1 ea N/A [facility]; Protocol Stop: 11/09/18 11:29 Last Admin: 10/13/18 12:00 Dose: Not Given Documented by: Insulin Aspart (Novolog Aspart) 0 units SC PRN PRN PRN Reason: Hyperglycemia Protocol Stop: 11/09/18 09:14 Miscellaneous (Carbohydrates For Hypoglycemia) 15 - 30 gm PO UD PRN PRN Reason: Hypoglycemia Treatment Stop: 11/09/18 09:14 Oxycodone/Acetaminophen (Percocet 5mg/325mg) 1 tab PO Q4H PRN PRN Reason: Pain not relieved by... Stop: 10/26/18 07:14 Prenat Multivit/Chrome Tanning Drum Operator/Iron/Folic Ac ( Vitamin) 1 tab PO [facility] Stop: 11/11/18 08:59 Last Admin: 10/13/18 08:42 Dose: 1 tab Documented by: <Lucina Jacome MD, FACOG - Last Filed: 10/14/18 07:45> Co-Signing Physician Notes Resident Physician Supervision Note: I interviewed and examined the patient. Discussed with Dr. Pineda and agree with findings and plan as documented in the note. Any exceptions or clarifications are listed here: Doing well. Plan d/c. Instructions given. f/u discussed. Discussed treatment for hemorrhoid. Documented By: Lucina Jacome MD, FACOG Resident Activity Tracking <Brandon Pineda, - Last Filed: 10/14/18 06:42> Resident Involvement: Resident Care Provided Care Provided: OB Delivery
[2018-10-14] MEDS: FERROUS SULFATE 325 MG TAB PO SCH (08:24)
[2018-10-14] MEDS: DOCUSATE SODIUM 100 MG CAP PO SCH (08:24)
[2018-10-14] MEDS: PRENATAL VITAMIN 1 TAB PO SCH (08:24)
[2018-10-14] MEDS: NovoLOG INSULIN PUMP SCH ×3 (08:25→16:16)
[2018-10-14] MEDS: IBUPROFEN 600 MG TAB PO PRN ×2 (08:38→16:15)
--- NOTE | 2018-10-17 01:57 | Discharge Summary ---
PRINCIPAL DIAGNOSES: Intrauterine at 40 weeks gestation, type 1 diabetic, longstanding unfavorable cervix. PRINCIPAL PROCEDURE: Vacuum-assisted vaginal delivery. HISTORY OF PRESENT ILLNESS: The patient is a 28-year-old 2, para 0-0-1-0 white female with a known type 1 diabetes mellitus who presented at 40 weeks for induction of labor. She had an unfavorable cervix. She received a cervical balloon on the evening of 10/09/2018. She received Pitocin augmentation over the day of October 10 & because of minimal cervical change with the cervical balloon she was rested overnight. The Pitocin was then restarted on 10/11/2018. Membranes were ruptured at that point as she was 4 cm dilated. She received epidural analgesia after she progressed to full dilation. She pushed for 2-1/2 hours and because of persistent deep variables and maternal exhaustion, the vacuum was placed at the perineum and through 2 contractions the infant was delivered easily. A tight nuchal cord was then cut and clamped prior to delivering the rest of the . Her recovery was uneventful. She was eating regular food that evening and was ambulating and voiding without difficulty. She was sent home with the usual instructions. CHERYL
== END 2018-10-14 17:50 | disposition home or self-care (01) | DRG 806 ==
LOC: 4S1 07:24 → 4S2 10-12 11:21

== ENCOUNTER 2020-05-04 16:51 | Inpatient (IN) ==
[2020-05-04] MEDS ORDERED: OXYTOCIN 30 UNITS/500 ML BAG IV PRN ×2 (17:18→19:00)
[2020-05-04] MEDS: LACTATED RINGER'S 1,000 ML IV PRN (17:40)
[2020-05-04 18:03] LABS: Hematocrit (blood only) 36.7 % (37-47); Hemoglobin 12.8 g/dL (12.0-16.0); Mean Corpuscular Hemoglobin 32.2 pg (25-34); Mean Corpuscular Hgb Conc 34.9 g/dL (32-36); Mean Corpuscular Volume 92.2 fL (80-100); Mean Platelet Volume 10.7 fL (7.4-10.4); Platelet Count 203 K/uL (130-400); RDW Coefficient of Variation 13.2 % (11.5-14.5); RDW Standard Deviation 44.8 fL (36.4-46.3); Red Blood Count 3.98 M/uL (4.2-5.4); White Blood Count 12.34 K/uL (4.8-10.8)
--- NOTE | 2020-05-04 18:58 | History & Physical Report ---
Date of Service May 04, 2020 Assessment & Plan (1) Type 1 diabetes mellitus affecting , antepartum: Managing diabetes with own pump and glucose monitor. Offered home for the night vs stay and begin pitocin ripening overnight. Patient elects to stay. tachy likely 2/2 dehydration given ketones in urine and prompt response to IV hydration. Admission and Anticipated Discharge Date Admission Date: May 04, 2020 History of Present Illness Chief Complaint: Patient was planned for IOL tomorrow due to T1DM, at 39w3d; however sent over from office as tachycardia was noted on end-of-day NST. Primary Care Provider: Melissa Merino DO Allergies Allergy/AdvReac Type Severity Reaction Status Date / Time No Known Drug Allergies Allergy Unknown NONE Verified 05/04/20 15:49 Home Medications Medication Instructions Recorded Confirmed Type Vitamin 1 tab PO DAILY 10/09/18 05/04/20 History glucagon HCl 1 mg/mL solution for 1 mg SUBCUT PRN #1 ea 11/03/18 05/04/20 Rx injection insulin syringe-needle U-100 1 mL #10 ea 11/03/18 05/04/20 History 31 gauge x 5/16" Contour Next Test Strips #700 ea NS 12/26/18 05/04/20 Rx Dexcom G6 Mastic Worker #1 ea NS 03/25/19 05/04/20 Rx Dexcom G6 Sensor #3 ea NS 03/25/19 05/04/20 Rx Dexcom G6 Transmitter #1 ea NS 03/25/19 05/04/20 Rx insulin aspart U-100 100 unit/mL See Rx Instructions SUBCUT DAILY 04/28/19 05/04/20 Rx subcutaneous solution #9 vial aspirin 81 mg tablet,delayed 81 mg PO DAILY 10/27/19 05/04/20 History release Patient History Medical History (Updated 03/03/20 @ 13:16 by Carlos Dawkins Jr, MD, FACOG) Diabetes mellitus type 1 Encounter for anatomic survey History of chicken pox Hypoglycemia unawareness in type 1 diabetes mellitus Kidney stone on left side passed approx 1 week ago at 39 weeks Surgical History [place] teeth extracted Family History Unknown Breast cancer Aunt Breast cancer Mother No known health problems Father No known health problems Sister No known health problems Grandfather Parkinson's disease Denies family history of Ovarian cancer Prostate cancer Myocardial infarction Colorectal cancer Social History Smoking Status: Never smoker Second Hand Exposure: No; Hx Alcohol Use: No Hx Substance Use: No Preferred Language: Montene[place] Visual Impairment: No Limitations Hearing Ability: Normal Tool And Die 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 Feels Safe at Home: Yes caffeine: No during the past year weight has: remained stable Dental Care, Regularly: Yes Physical Activity Frequency: Daily Seatbelt Use: always Sunscreen Use: Yes Assistive Devices: None Physical Exam Physical Exam: Cervix 3/th/hi/post/firm No LOF FHT Tachy with good variability and accels on arrival. Urine dip +ketones. IVF started on arrival. tones improved to baseline 150 mod chance +acc -dec within 2 hours. [place] irritable at most, not painful to patient. Results & Data ([facility]) Vital Signs (Past 12 Hours) Vital Signs Pulse BP 05/04/20 16:57 97 H 118/77 Code Status & VTE Plan VTE Prophylaxis Plan VTE Prophylaxis will be ordered: Yes Coding Level of Care Code None Diagnoses Type 1 diabetes mellitus affecting , antepartum O24.019
[2020-05-05] MEDS: LACTATED RINGER'S 1,000 ML IV PRN ×6 (00:40→19:29)
[2020-05-05] MEDS ORDERED: ePHEDrine sulfate 50 MG/ML AMP IV PRN ×2 (05:17→23:10)
[2020-05-05] MEDS ORDERED: NALOXONE HCL 1 MG in SODIUM CHLORIDE 0.9% 1000ML 1,000 ML IV PRN ×2 (05:17→23:10)
[2020-05-05] MEDS ORDERED: diphenhydrAMINE 50 MG/ML VIAL IV PRN ×2 (05:17→23:10)
[2020-05-05] MEDS ORDERED: ONDANSETRON INJ 2 MG/ML 2 ML VIAL IV PRN ×2 (05:17→23:10)
[2020-05-05] MEDS ORDERED: NALOXONE HCL 0.4 MG/1 ML VIAL/CARP IV PRN ×2 (05:17→23:10)
--- NOTE | 2020-05-05 05:19 | Anesthesiology Consultation ---
Date of Service May 05, 2020 Covid 19 negative on 05/04/20. Assessment & Plan Chart Review Chart Review: Patient NOT seen in Pre Admission Testing and Acceptable Risk for Labor Epidural Consults Requested none ASA ASA2 Proposed Anesthesia Anesthesia Type: Labor Epidural and CSE Risk / Benefits Reviewed With: PT / POA / Parent / Guardian, Accepts Plan and Informed Consent Obtained History Height/Weight Height: 5 ft 6 in Weight: 84.368 kg Allergies Allergy/AdvReac Type Severity Reaction Status Date / Time No Known Drug Allergies Allergy Unknown NONE Verified 05/04/20 15:49 Medications Home Medications Medication Instructions Recorded Confirmed Last Taken Vitamin 1 tab PO DAILY 10/09/18 05/04/20 05/04/20 08:00 glucagon HCl 1 mg/mL solution for 1 mg SUBCUT PRN #1 ea 11/03/18 05/04/20 Unknown injection insulin syringe-needle U-100 1 mL #10 ea 11/03/18 05/04/20 Unknown 31 gauge x 5/16" Contour Next Test Strips #700 ea NS 12/26/18 05/04/20 Unknown Dexcom G6 Tool Technician #1 ea NS 03/25/19 05/04/20 Unknown Dexcom G6 Sensor #3 ea NS 03/25/19 05/04/20 Unknown Dexcom G6 Transmitter #1 ea NS 03/25/19 05/04/20 Unknown insulin aspart U-100 100 unit/mL See Rx Instructions SUBCUT DAILY 04/28/1904/2205/04/20 19:29 subcutaneous solution #9 vial see notes aspirin 81 mg tablet,delayed 81 mg PO DAILY 10/27/19 05/04/20 05/04/20 08:00 release Active Medications Generic Name Dose Route Start Last Admin Trade Name Freq PRN Reason Stop Dose Admin Lactated Ringer's 1,000 mls @ 125 mls/hr 05/04/20 17:18 05/05/20 05:14 Lr IV 05/06/20 17:17 999 mls/hr .Q8H PRN Administration L&D Protocol Protocol Oxytocin 30 units in 500 mls @ 3 mls/hr 05/04/20 19:00 05/04/20 22:00 Pitocin IV 05/06/20 18:59 0.18 units/hr .Q24H PRN 3 mls/hr Labor Induction/Augmentation Titration Protocol 0.18 UNITS/HR NPO Date Last Intake of Fluids: 05/04/20 Time Last Intake of Fluids: 21:00 Date Last Intake of Solids: 05/04/20 Time Last Intake of Solids: 21:00 Past Medical History Medical History Diabetes mellitus type 1 Encounter for anatomic survey History of chicken pox Hypoglycemia unawareness in type 1 diabetes mellitus Kidney stone on left side passed approx 1 week ago at 39 weeks Exercise / Class Metabolic Activity II 4-5 Yardwork/Stairs/Walk up hill Past Family History Family History Unknown Breast cancer Aunt Breast cancer Mother No known health problems Father No known health problems Sister No known health problems Grandfather Parkinson's disease Denies family history of Ovarian cancer Prostate cancer Myocardial infarction Colorectal cancer Past Surgical History Surgical History [place] teeth extracted Past Anesthesia History No Hx of Anesthesia Complications and No Family Hx of Anesthesia Complications History of PONV No Hx of PONV and No Hx of Motion Sickness Social History Smoking Status: Never smoker Hx Alcohol Use: No Hx Substance Use: No substance use type: does not use Review of Systems no chest pain or sob Physical Exam Vital Signs Last Vital Signs Temp 36.7 C 05/05/20 00:01 Pulse 86 05/05/20 05:17 Resp 18 05/05/20 02:55 BP 112/68 05/05/20 02:54 Pulse Ox 96 05/05/20 05:17 ENMT Mouth: no TMJ abnormality Thyromental Distance: > or= 3.5 Finger Breadths Mallampati Class: II Neck normal visual inspection Respiratory normal respiratory effort Auscultation: lungs clear to auscultation bilaterally Cardiovascular Rate/Rhythm: regular rate and regular rhythm Musculoskeletal Spine: normal cervical ROM Neurologic moves all extremities Psychiatric Orientation: alert and oriented x 3 Testing Laboratory Results 05/04/20 17:50 05/05/20 02:10 POC Glucose 86
[2020-05-05] MEDS: fentaNYL 2MCG/ML ROPIVACAINE 1.25MG/ML 100 ML BAG EPI PRN ×3 (05:38→21:17)
--- NOTE | 2020-05-05 07:09 | Labor Progress Brief Note ---
Date of Service May 05, 2020 Subjective Comfortable with epidural. Assessment & Plan (1) Type 1 diabetes mellitus affecting , antepartum: Continue IOL, pitocin, epidural, self-adjustment of CGM/Insulin to maintain within goal range. Admission and Anticipated Discharge Date Admission Date: May 04, 2020 Physical Exam Physical Exam: 50/-2/SROM for clear fluid early this morning/vertex palpable FHT Cat 1 [place] Q3 Pit @ 7 Results & Data ([facility]) Vital Signs (Past 12 Hours) Vital Signs Temp Pulse Resp BP Pulse Ox 05/05/20 07:07 88 98 05/05/20 07:02 70 95 05/05/20 06:57 82 98 05/05/20 06:52 81 96 05/05/20 06:51 72 90/59 L 05/05/20 06:47 95 H 98 05/05/20 06:42 89 97 05/05/20 06:39 96 H 80/55 L 05/05/20 06:37 96 H 98 05/05/20 06:32 90 100 05/05/20 06:27 74 94 05/05/20 06:22 69 105/58 L 96 05/05/20 06:17 78 94 05/05/20 06:12 75 93 05/05/20 06:10 83 96/56 L 05/05/20 06:07 80 97 05/05/20 06:02 84 97 05/05/20 05:59 80 106/61 05/05/20 05:57 80 97 05/05/20 05:55 78 98/53 L 05/05/20 05:52 79 98/54 L 94 05/05/20 05:50 86 95/52 L 05/05/20 05:47 86 95 05/05/20 05:46 82 108/56 L 05/05/20 05:43 85 105/58 L 05/05/20 05:42 86 96 05/05/20 05:40 76 101/56 L 05/05/20 05:37 85 106/58 L 94 05/05/20 05:36 87 94 05/05/20 05:32 95 H 96 05/05/20 05:31 88 102/66 05/05/20 05:27 98 H 99 05/05/20 05:22 88 97 05/05/20 05:17 86 96 05/05/20 05:12 83 96 05/05/20 05:07 91 H 97 05/05/20 05:02 85 95 05/05/20 05:01 84 94 05/05/20 02:55 18 05/05/20 02:54 97 H 112/68 05/05/20 00:46 89 115/71 05/05/20 00:44 18 05/05/20 00:02 90 94/53 L 05/05/20 00:01 98.1 F 18 05/04/20 22:30 97.9 F 18 05/04/20 22:05 81 114/66 05/04/20 22:04 18 05/04/20 19:21 90 124/72 Coding Level of Care Code None Diagnoses Type 1 diabetes mellitus affecting , antepartum O24.019
[2020-05-05] MEDS ORDERED: OXYTOCIN 30 UNITS/500 ML BAG IV PRN (11:53)
[2020-05-05] MEDS ORDERED: GLUCOSE 10 TABS/TUBE PO PRN ×2 (18:02→18:15)
[2020-05-05] MEDS ORDERED: GLUCOSE 40% GEL 15 GM TUBE PO ONE (18:03)
[2020-05-05] MEDS ORDERED: GLUCAGON FOR INJ 1 MG VIAL SQ PRN (18:15)
[2020-05-05] MEDS ORDERED: Nursing to Pharmacy Communication SCH (18:15)
[2020-05-05] MEDS ORDERED: DEXTROSE 50% 50 ML SYRINGE IV PRN (18:15)
[2020-05-05] MEDS ORDERED: INSULIN ASPART 100 UNITS/ML VIAL SC PRN (18:15)
[2020-05-05] MEDS ORDERED: GLUCOSE 40% GEL 15 GM TUBE PO PRN (18:15)
[2020-05-05] MEDS ORDERED: CARBOHYDRATES FOR HYPOGLYCEMIA PO PRN (18:15)
[2020-05-05] MEDS ORDERED: CITRIC ACID/SODIUM CITRATE 15 ML UDC ONE (22:05)
[2020-05-05] MEDS ORDERED: ceFAZolin 2000MG 2,000 MG/15 ML SYR IV SCH (22:15)
--- NOTE | 2020-05-05 22:20 | Obstetrical Progress Note ---
Date of Service May 05, 2020 Assessment & Plan Admission and Anticipated Discharge Date Admission Date: May 04, 2020 will proceed with low transverse section because of intolerance of labor. Subjective had SPROM at 0530 this am but on exam at 1300, there was still a forebag present. AROM was done for a copious amount of clear fluid. Pitocin augmentation was continued as cervix was still 5cm dilated with presenting part at -3 station. the patient progressed to 8 cm dilated but vertex still remains at -3 station. persistent severe variables have been resistant to fluid bolus, O2 and position changes. the pitocin has been stopped and restarted after resuscitation.there is still excellent btbv and accels but baby is intolerant to a contraction pattern that will allow progress in labor. After discussing options with the patient and her they are wish to proceed with LTCS as she has been at 8 cm for over 4 hours. the procedure and it's risks were reviewed with the patient and her and all of her questions were answered to her satisfaction. Review of Systems Review of Systems: All systems reviewed & are unremarkable except as noted in HPI & below Physical Exam Constitutional: WD/WN, vitals as above Psychiatric: A+Ox3, euthymic affect Genitourinary: Manual OB Exam: + cervical dilation 8 cm, + cervical effacement 90% and + station high (not well applied to cervix) OB Exam Monitor Tracing: + external FHT monitor used, + external uterine monitor used, + category II, + normal FHT variability and + variable decelerations recurrent Results & Data (MN) Vital Signs (Past 12 Hours) Vital Signs Temp Pulse Resp BP Pulse Ox 05/05/20 22:03 91 H 95 05/05/20 21:58 92 H 95 05/05/20 21:53 94 H 97 05/05/20 21:48 94 H 96 05/05/20 21:43 79 96 05/05/20 21:39 71 113/57 L 05/05/20 21:38 73 95 05/05/20 21:33 73 95 05/05/20 21:30 18 05/05/20 21:28 70 93 05/05/20 21:23 71 111/60 93 05/05/20 21:18 73 95 05/05/20 21:15 73 89 L 05/05/20 21:13 82 94 05/05/20 21:12 88 101/60 05/05/20 21:10 74 92/54 L 05/05/20 21:08 86 97 05/05/20 21:05 98.8 F 05/05/20 21:04 94 H 90 05/05/20 21:03 99 H 97 05/05/20 21:00 18 05/05/20 20:58 89 95 05/05/20 20:56 88 97/61 L 05/05/20 20:53 96 H 95 05/05/20 20:48 97 H 90 05/05/20 20:43 81 94 05/05/20 20:38 95 H 110/56 L 93 05/05/20 20:36 82 89 L 05/05/20 20:33 79 93 05/05/20 20:30 20 05/05/20 20:29 74 90 05/05/20 20:28 89 93 05/05/20 20:23 86 109/60 93 05/05/20 20:18 78 93 05/05/20 20:13 81 94 05/05/20 20:08 71 122/58 L 96 05/05/20 20:03 84 94 05/05/20 20:00 18 05/05/20 19:58 92 H 93 05/05/20 19:53 101 H 124/65 95 05/05/20 19:48 75 95 05/05/20 19:46 91 H 112/60 05/05/20 19:43 90 97 05/05/20 19:41 85 114/56 L 05/05/20 19:38 85 98 05/05/20 19:33 86 96 05/05/20 19:31 81 112/60 05/05/20 19:30 20 05/05/20 19:29 96 H 105/58 L 05/05/20 19:28 71 87/51 L 97 05/05/20 19:24 66 86/49 L 05/05/20 19:23 70 97 05/05/20 19:22 70 89/51 L 05/05/20 19:18 78 96 05/05/20 19:13 82 99 05/05/20 19:08 87 99 05/05/20 19:07 82 102/63 05/05/20 19:05 98.6 F 18 05/05/20 19:03 70 97 05/05/20 18:58 78 99 05/05/20 18:53 77 98 05/05/20 18:50 77 101/55 L 05/05/20 18:48 66 97 05/05/20 18:43 68 98 05/05/20 18:38 72 97 05/05/20 18:36 69 20 103/51 L 05/05/20 18:33 73 98 05/05/20 18:28 72 97 05/05/20 18:23 73 96 05/05/20 18:21 75 103/56 L 05/05/20 18:18 68 97 05/05/20 18:13 74 96 05/05/20 18:08 87 96 05/05/20 18:07 86 105/55 L 05/05/20 18:03 75 95 05/05/20 17:58 82 99 05/05/20 17:53 76 98 05/05/20 17:48 71 96 05/05/20 17:43 76 96 05/05/20 17:38 77 97 05/05/20 17:36 84 18 92/52 L 05/05/20 17:33 91 H 100 05/05/20 17:28 78 99 05/05/20 17:23 74 100 05/05/20 17:22 74 92/54 L 05/05/20 17:18 76 99 05/05/20 17:13 78 100 05/05/20 17:10 98.2 F 20 05/05/20 17:08 77 100 05/05/20 17:05 71 101/57 L 05/05/20 17:03 67 100 05/05/20 16:58 73 100 05/05/20 16:53 71 20 102/56 L 100 05/05/20 16:48 86 100 05/05/20 16:43 90 99 05/05/20 16:39 90 86 L 05/05/20 16:38 79 99 05/05/20 16:37 82 20 102/56 L 05/05/20 16:33 90 100 05/05/20 16:28 86 99 05/05/20 16:23 94 H 99 05/05/20 16:17 90 100 05/05/20 16:12 89 98 05/05/20 16:07 91 H 98 05/05/20 16:05 77 105/61 0114/21 16:02 88 99 05/05/20 15:57 93 H 97 05/05/20 15:52 69 96 05/05/20 15:51 76 18 105/63 05/05/20 15:47 73 98 05/05/20 15:42 85 98 05/05/20 15:37 87 98 05/05/20 15:36 84 101/61 05/05/20 15:32 75 98 05/05/20 15:27 88 97 05/05/20 15:22 83 98 05/05/20 15:21 81 108/65 05/05/20 15:17 85 96 05/05/20 15:12 79 97 05/05/20 15:07 71 98 05/05/20 15:06 80 18 100/59 L 05/05/20 15:02 85 97 05/05/20 14:57 81 99 05/05/20 14:52 89 100 05/05/20 14:51 88 105/63 05/05/20 14:47 80 98 05/05/20 14:42 81 97 05/05/20 14:37 77 99 05/05/20 14:36 76 102/56 L 05/05/20 14:32 75 97 05/05/20 14:27 79 98 05/05/20 14:25 83 18 98/57 L 05/05/20 14:22 80 98 05/05/20 14:17 80 96 05/05/20 14:12 79 97 05/05/20 14:07 80 95 05/05/20 14:05 86 101/59 L 05/05/20 14:02 86 96 05/05/20 13:57 93 H 97 05/05/20 13:52 86 95 05/05/20 13:51 84 103/60 05/05/20 13:47 82 96 05/05/20 13:42 91 H 96 05/05/20 13:37 73 20 107/82 96 05/05/20 13:32 92 H 98 05/05/20 13:27 95 H 98 05/05/20 13:22 90 97 05/05/20 13:21 88 108/62 05/05/20 13:17 99 H 98 05/05/20 13:15 98.2 F 20 05/05/20 13:12 88 98 05/05/20 13:07 82 98 05/05/20 13:05 84 110/64 05/05/20 13:02 77 97 05/05/20 12:57 85 98 05/05/20 12:52 87 96 05/05/20 12:51 76 104/63 05/05/20 12:47 78 96 05/05/20 12:42 88 95 05/05/20 12:37 77 104/59 L 97 05/05/20 12:32 76 96 05/05/20 12:31 20 05/05/20 12:27 86 96 05/05/20 12:22 88 99/59 L 97 05/05/20 12:17 88 96 05/05/20 12:12 87 95 05/05/20 12:07 90 96 05/05/20 12:06 81 103/55 L 05/05/20 12:02 78 96 05/05/20 12:01 20 05/05/20 11:57 90 96 05/05/20 11:52 83 102/64 97 05/05/20 11:47 78 96 05/05/20 11:42 82 95 05/05/20 11:37 73 97 05/05/20 11:35 81 18 101/63 05/05/20 11:32 81 97 05/05/20 11:27 87 96 05/05/20 11:22 76 97 05/05/20 11:20 95 H 18 104/62 05/05/20 11:17 79 96 05/05/20 11:12 71 97 05/05/20 11:07 78 106/62 99 05/05/20 11:02 80 97 05/05/20 10:57 78 99 05/05/20 10:52 80 102/63 98 05/05/20 10:47 83 97 05/05/20 10:42 79 98 05/05/20 10:40 98.1 F 18 05/05/20 10:38 80 18 105/65 05/05/20 10:37 84 98 05/05/20 10:32 89 96 05/05/20 10:27 85 97 05/05/20 10:25 86 108/58 L 05/05/20 10:22 86 98 05/05/20 10:17 77 98 05/05/20 10:12 75 97 PG Care Time/CCT Total # of Minutes Spent Total Time Spent with Patient: Total time spent is greater than 50% in coordination of care (as documented) at patient's floor/unit and/or counseling patient: Coding Level of Care Code None
[2020-05-05] MEDS ORDERED: METHYLERGONOVINE MALEATE 0.2 MG/ML AMP IM STA (23:07)
[2020-05-05] MEDS ORDERED: MoRPHine SULFATE PF 1 MG/ML 10 ML AMP/VIAL INT SPINAL ONE (23:10)
[2020-05-05] MEDS ORDERED: MoRPHine SULFATE 2 MG/ML CARP IV PRN (23:10)
[2020-05-05] MEDS ORDERED: LACTATED RINGER'S 500 ML IV PRN (23:10)
[2020-05-05] MEDS ORDERED: NALOXONE HCL 0.08 MG in SYRINGE 1.8 ML IV PRN (23:10)
[2020-05-05] MEDS ORDERED: SODIUM CHLORIDE 0.9% 1000ML 1,000 ML IV SCH (23:15)
[2020-05-05] MEDS ORDERED: DC INTRASPINAL MORPHINE SCH (23:15)
[2020-05-05] MEDS ORDERED: NO NARCOTICS OR SEDATIVES SCH (23:15)
--- NOTE | 2020-05-05 23:24 | Post Operative Brief Note ---
PG Immediate Post Op with CF Date of Surgery May 05, 2020 Pre & Post Diagnosis Operation Date: 05/05/20 22:00 Pre-Op Diagnosis: 1. intolerance to labor. Post-Op Diagnosis: Same as above. I identified the patient and participated in the time-out.: Yes Procedure Operation Date: 05/05/20 22:00 Actual Procedures p Section in LD Live Male child at 2251 - Tania Cortez MD, FACOG Surgeon Tania Cortez MD, FACOG [employer] Professional Filomena Villeda RN Estimated Blood Loss 600 Findings Consistent with Post-Op Diagnosis Drains Chambers Catheter (Patent and draining)
--- NOTE | 2020-05-05 23:26 | Operative Report ---
PG Post Operative Report Pre & Post Diagnosis Operation Date: 05/05/20 22:00 Pre-Op Diagnosis: 1. intolerance to labor. Post-Op Diagnosis: Same as above. I identified the patient and participated in the time-out.: Yes Procedure Operation Date: 05/05/20 22:00 Actual Procedures p Section in LD Live Male child at 2251 - Tania Cortez MD, FACOG Surgeon Tania Cortez MD, FACOG [employer] Member Filomena Villeda RN Estimated Blood Loss 600 Findings See Below nuchal cord X1, cord also around left shoulder & right wrist uterus, tubes and ovaries are all grossly normal Specimens placenta to hold Drains Chambers to straight drainage- clear urine at end of the case Anesthesia Type L&D Only Epidural Exists Complications none Disposition Accompanied Patient To Recovery: Yes Disposition: L&D Indications Patient is a 29-year-old 2 para 1-0-0-1 white female who presents at 40 weeks for induction of labor because of type 1 diabetes. Her blood sugars have been very well controlled during this . on the day prior to induction she had a nonstress test and the baby had persistent tachycardia. She was sent to labor and delivery for further evaluation and monitoring. After receiving IV fluids for hydration the heart rate tracing was category 1. Patient was offered admission and initiation of induction which she accepted. She was begun on low-dose Pitocin overnight and appeared to have ruptured membranes at approximately 5:30 AM. She received effective epidural analgesia at that time and the Pitocin augmentation was continued per protocol. At 1300 hrs., she was reexamined and noted to have a forebag present that was ruptured for a copious amount of clear amniotic fluid. heart tracing remained category 1 until contractions became more consistent and stronger. At that time, deep variables became persistent despite O2, position changes and IV bolus. The Pitocin was st opped intermittently with the heart rate tracing returning to category 1. she progressed to 8 cm dilated, but because of the continued intolerance of labor it was felt prudent to proceed with section after she was unable to progress past 8 cm for over 4 hours. Patient and her were agreeable to this plan and all the questions were answered prior to proceeding with a section Description of Procedure After the patient received effective epidural anesthesia, she was prepped and draped in the usual sterile fashion. A low transverse skin incision was made with a scalpel and carried to the fascia with the same scalpel. The fascial incision was then extended with Sheriff scissors and the underlying rectus muscles bluntly sharply dissected off of the overlying fascia. The rectus muscles were bluntly divided along the midline and the underlying peritoneum elevated and entered bluntly. The bladder was then taken down off the anterior surface of the uterus and placed behind the bladder blade. The lower uterine segment was entered with a scalpel and extended transversely in a blunt fashion. There was still clear fluid upon entering the uterine cavity. The was delivered from the vertex presentation with moderate fundal pressure. The rest of the infant delivered easily. He was vigorous and moving all 4 limbs. There was a loose nuchal cord which was reduced prior to delivering the rest of the . Also noted was a shoulder cord around the presenting left shoulder and another loop of cord around the right wrist. After the cord was clamped and cut, the was handed off to Dr. Momin who was attendance as platinumsmith. The placenta was expressed intact with a three-vessel cord. The uterus was exteriorized and covered with a clean lap sponge. Uterine cavity was then explored and found to be free of any retained placenta or membranes. The lower edge of the incision was grasped with T clamps. The uterine incision was then closed in 2 layers in a running locking imbricating fashion with 0 Monocryl. Hemostasis was noted to be excellent. The posterior cul-de-sac was irrigated for small amount of blood-tinged fluid. The uterine incision was examined once again and continued to have excellent hemostasis. The uterus was placed back inside the abdominal cavity the gutters were explored and found to be free of any clot or fluid. The uterine incision continued to be hemostatic. The anterior cul-de-sac was irrigated with normal saline. The rectus muscle were br ought together in the midline with individual stitches of 0 Monocryl. The fascia was closed in a running fashion with 0 Vicryl. After irrigating the adipose layer, with normal saline, the skin edges were reapproximated using a subcuticular stitch of 3-0 Vicryl. Mother and infant tolerated the procedure well and were stable condition in labor and delivery recovery. I attest to the content of the Intraoperative Record and any orders documented therein. Any exceptions are noted below. OB Procedure charges OB Charges 33371 C/S
--- NOTE | 2020-05-05 23:39 | Anesthesiology Progress Note ---
Date of Service May 05, 2020 Anesthesia Post Procedure Vital Signs Vital Signs: Temp Pulse Resp BP Pulse Ox 05/05/20 23:38 91 H 93 05/05/20 23:33 87 116/55 L 94 05/05/20 22:25 18 05/05/20 22:23 103 H 125/65 95 05/05/20 22:18 88 95 05/05/20 22:13 90 95 05/05/20 22:10 87 128/64 05/05/20 22:08 95 H 90 05/05/20 22:03 91 H 95 05/05/20 22:00 20 05/05/20 21:58 92 H 95 05/05/20 21:53 94 H 97 05/05/20 21:48 94 H 96 05/05/20 21:43 79 96 05/05/20 21:39 71 113/57 L 05/05/20 21:38 73 95 05/05/20 21:33 73 95 05/05/20 21:30 18 05/05/20 21:28 70 93 05/05/20 21:23 71 111/60 93 05/05/20 21:18 73 95 05/05/20 21:15 73 89 L 05/05/20 21:13 82 94 05/05/20 21:12 88 101/60 05/05/20 21:10 74 92/54 L 05/05/20 21:08 86 97 05/05/20 21:05 37.1 C 05/05/20 21:04 94 H 90 05/05/20 21:03 99 H 97 05/05/20 21:00 18 05/05/20 20:58 89 95 05/05/20 20:56 88 97/61 L 05/05/20 20:53 96 H 95 05/05/20 20:48 97 H 90 05/05/20 20:43 81 94 05/05/20 20:38 95 H 110/56 L 93 05/05/20 20:36 82 89 L 05/05/20 20:33 79 93 05/05/20 20:30 20 05/05/20 20:29 74 90 05/05/20 20:28 89 93 05/05/20 20:23 86 109/60 93 05/05/20 20:18 78 93 05/05/20 20:13 81 94 05/05/20 20:08 71 122/58 L 96 05/05/20 20:03 84 94 05/05/20 20:00 18 05/05/20 19:58 92 H 93 05/05/20 19:53 101 H 124/65 95 05/05/20 19:48 75 95 05/05/20 19:46 91 H 112/60 05/05/20 19:43 90 97 05/05/20 19:41 85 114/56 L 05/05/20 19:38 85 98 05/05/20 19:33 86 96 05/05/20 19:31 81 112/60 05/05/20 19:30 20 05/05/20 19:29 96 H 105/58 L 05/05/20 19:28 71 87/51 L 97 05/05/20 19:24 66 86/49 L 05/05/20 19:23 70 97 05/05/20 19:22 70 89/51 L 05/05/20 19:18 78 96 05/05/20 19:13 82 99 05/05/20 19:08 87 99 05/05/20 19:07 82 102/63 05/05/20 19:05 37.0 C 18 05/05/20 19:03 70 97 05/05/20 18:58 78 99 05/05/20 18:53 77 98 05/05/20 18:50 77 101/55 L 05/05/20 18:48 66 97 05/05/20 18:43 68 98 05/05/20 18:38 72 97 05/05/20 18:36 69 20 103/51 L 05/05/20 18:33 73 98 05/05/20 18:28 72 97 05/05/20 18:23 73 96 05/05/20 18:21 75 103/56 L 05/05/20 18:18 68 97 05/05/20 18:13 74 96 05/05/20 18:08 87 96 05/05/20 18:07 86 105/55 L 05/05/20 18:03 75 95 05/05/20 17:58 82 99 05/05/20 17:53 76 98 05/05/20 17:48 71 96 05/05/20 17:43 76 96 05/05/20 17:38 77 97 05/05/20 17:36 84 18 92/52 L 05/05/20 17:33 91 H 100 05/05/20 17:28 78 99 05/05/20 17:23 74 100 05/05/20 17:22 74 92/54 L 05/05/20 17:18 76 99 05/05/20 17:13 78 100 05/05/20 17:10 36.8 C 20 05/05/20 17:08 77 100 05/05/20 17:05 71 101/57 L 05/05/20 17:03 67 100 05/05/20 16:58 73 100 05/05/20 16:53 71 20 102/56 L 100 05/05/20 16:48 86 100 05/05/20 16:43 90 99 05/05/20 16:39 90 86 L 05/05/20 16:38 79 99 05/05/20 16:37 82 20 102/56 L 05/05/20 16:33 90 100 05/05/20 16:28 86 99 05/05/20 16:23 94 H 99 05/05/20 16:17 90 100 05/05/20 16:12 89 98 05/05/20 16:07 91 H 98 05/05/20 16:05 77 105/61 05/05/20 16:02 88 99 05/05/20 15:57 93 H 97 05/05/20 15:52 69 96 05/05/20 15:51 76 18 105/63 05/05/20 15:47 73 98 05/05/20 15:42 85 98 05/05/20 15:37 87 98 05/05/20 15:36 84 101/61 05/05/20 15:32 75 98 05/05/20 15:27 88 97 05/05/20 15:22 83 98 05/05/20 15:21 81 108/65 05/05/20 15:17 85 96 05/05/20 15:12 79 97 05/05/20 15:07 71 98 05/05/20 15:06 80 18 100/59 L 05/05/20 15:02 85 97 05/05/20 14:57 81 99 05/05/20 14:52 89 100 05/05/20 14:51 88 105/63 05/05/20 14:47 80 98 05/05/20 14:42 81 97 05/05/20 14:37 77 99 05/05/20 14:36 76 102/56 L 05/05/20 14:32 75 97 05/05/20 14:27 79 98 05/05/20 14:25 83 18 98/57 L 05/05/20 14:22 80 98 05/05/20 14:17 80 96 05/05/20 14:12 79 97 05/05/20 14:07 80 95 05/05/20 14:05 86 101/59 L 05/05/20 14:02 86 96 05/05/20 13:57 93 H 97 05/05/20 13:52 86 95 05/05/20 13:51 84 103/60 05/05/20 13:47 82 96 05/05/20 13:42 91 H 96 05/05/20 13:37 73 20 107/82 96 05/05/20 13:32 92 H 98 05/05/20 13:27 95 H 98 05/05/20 13:22 90 97 05/05/20 13:21 88 108/62 05/05/20 13:17 99 H 98 05/05/20 13:15 36.8 C 20 05/05/20 13:12 88 98 05/05/20 13:07 82 98 05/05/20 13:05 84 110/64 05/05/20 13:02 77 97 05/05/20 12:57 85 98 05/05/20 12:52 87 96 05/05/20 12:51 76 104/63 05/05/20 12:47 78 96 05/05/20 12:42 88 95 05/05/20 12:37 77 104/59 L 97 05/05/20 12:32 76 96 05/05/20 12:31 20 05/05/20 12:27 86 96 05/05/20 12:22 88 99/59 L 97 05/05/20 12:17 88 96 05/05/20 12:12 87 95 05/05/20 12:07 90 96 05/05/20 12:06 81 103/55 L 05/05/20 12:02 78 96 05/05/20 12:01 20 05/05/20 11:57 90 96 05/05/20 11:52 83 102/64 97 05/05/20 11:47 78 96 05/05/20 11:42 82 95 05/05/20 11:37 73 97 05/05/20 11:35 81 18 101/63 05/05/20 11:32 81 97 05/05/20 11:27 87 96 05/05/20 11:22 76 97 05/05/20 11:20 95 H 18 104/62 05/05/20 11:17 79 96 05/05/20 11:12 71 97 05/05/20 11:07 78 106/62 99 05/05/20 11:02 80 97 05/05/20 10:57 78 99 05/05/20 10:52 80 102/63 98 05/05/20 10:47 83 97 05/05/20 10:42 79 98 05/05/20 10:40 36.7 C 18 05/05/20 10:38 80 18 105/65 05/05/20 10:37 84 98 05/05/20 10:32 89 96 05/05/20 10:27 85 97 05/05/20 10:25 86 108/58 L 05/05/20 10:22 86 98 05/05/20 10:17 77 98 05/05/20 10:12 75 97 05/05/20 10:07 77 96 05/05/20 10:05 71 18 96/58 L 05/05/20 10:02 73 93 05/05/20 09:57 68 93 05/05/20 09:52 66 96 05/05/20 09:50 74 102/64 05/05/20 09:47 71 97 05/05/20 09:42 80 97 05/05/20 09:37 80 95 05/05/20 09:36 74 97/59 L 05/05/20 09:32 73 97 05/05/20 09:27 72 97 05/05/20 09:22 78 87 L 05/05/20 09:21 72 96/63 L 05/05/20 09:17 69 95 05/05/20 09:16 68 89 L 05/05/20 09:12 72 97 05/05/20 09:07 73 97 05/05/20 09:06 74 108/67 05/05/20 09:02 86 97 05/05/20 08:58 37.0 C 20 05/05/20 08:57 93 H 98 05/05/20 08:52 82 96 05/05/20 08:51 87 102/66 05/05/20 08:47 81 95 05/05/20 08:42 91 H 95 05/05/20 08:37 78 95 05/05/20 08:36 89 94/57 L 05/05/20 08:32 91 H 97 05/05/20 08:27 88 96 05/05/20 08:22 84 99 05/05/20 08:21 82 18 107/63 05/05/20 08:17 72 94 05/05/20 08:12 79 97 05/05/20 08:07 101 H 97 05/05/20 08:05 88 97/60 L 05/05/20 08:02 80 98 05/05/20 07:57 84 100 05/05/20 07:52 84 97 05/05/20 07:51 81 101/61 05/05/20 07:47 77 97 05/05/20 07:42 76 98 05/05/20 07:37 109 H 98 05/05/20 07:36 102 H 18 100/64 05/05/20 07:32 86 97 05/05/20 07:27 77 97 05/05/20 07:22 81 97 05/05/20 07:21 80 18 107/67 05/05/20 07:17 76 97 05/05/20 07:12 86 97 05/05/20 07:10 36.5 C 18 05/05/20 07:07 88 98 05/05/20 07:02 70 95 05/05/20 06:57 82 98 05/05/20 06:52 81 96 05/05/20 06:51 72 90/59 L 05/05/20 06:47 95 H 98 05/05/20 06:42 89 97 05/05/20 06:39 96 H 80/55 L 05/05/20 06:37 96 H 98 05/05/20 06:32 90 100 05/05/20 06:27 74 94 05/05/20 06:22 69 105/58 L 96 05/05/20 06:17 78 94 05/05/20 06:12 75 93 05/05/20 06:10 83 96/56 L 05/05/20 06:07 80 97 05/05/20 06:02 84 97 05/05/20 05:59 80 106/61 05/05/20 05:57 80 97 05/05/20 05:55 78 98/53 L 05/05/20 05:52 79 98/54 L 94 05/05/20 05:50 86 95/52 L 05/05/20 05:47 86 95 05/05/20 05:46 82 108/56 L 05/05/20 05:43 85 105/58 L 05/05/20 05:42 86 96 05/05/20 05:40 76 101/56 L 05/05/20 05:37 85 106/58 L 94 05/05/20 05:36 87 94 05/05/20 05:32 95 H 96 05/05/20 05:31 88 102/66 05/05/20 05:27 98 H 99 05/05/20 05:22 88 97 05/05/20 05:17 86 96 05/05/20 05:12 83 96 05/05/20 05:07 91 H 97 05/05/20 05:02 85 95 05/05/20 05:01 84 94 05/05/20 02:55 18 05/05/20 02:54 97 H 112/68 05/05/20 00:46 89 115/71 05/05/20 00:44 18 05/05/20 00:02 90 94/53 L 05/05/20 00:01 36.7 C 18 Pain Intensity Bilateral Abdomen: Pain Intensity: 4 Notes Mental Status: alert / awake / arousable Patient Amnestic to Procedure: No Nausea / Vomiting: adequately controlled Pain: adequately controlled Airway Patency, RR, SpO2: stable & adequate BP & HR: stable & adequate Hydration State: stable & adequate Neuraxial Anesthesia: was administered and sensory block is resolving Anesthetic Complications: no major complications apparent and Pt Satisfied with anesthetic care
--- NOTE | 2020-05-05 23:39 | Anesthesia Procedure Note ---
Date of Service May 05, 2020 Anesthesia Post Epidural Note Vital Signs Vital Signs: Temp Pulse Resp BP Pulse Ox 37.1 C 87 18 116/55 L 94 05/05/20 21:05 05/05/20 23:33 05/05/20 22:25 05/05/20 23:33 05/05/20 23:33 Pain Intensity Bilateral Abdomen: Pain Intensity: 4 Notes Mental Status: alert / awake / arousable and participated in evaluation Patient Amnestic to Procedure: No Nausea / Vomiting: adequately controlled Pain: adequately controlled Airway Patency, RR, SpO2: stable & adequate BP & HR: stable & adequate Hydration State: stable & adequate Neuraxial Anesthesia: was administered and sensory block is resolving Anesthetic Complications: no major complications apparent and Pt Satisfied with anesthetic care Epidural: Removed without complications and With tip intact
[2020-05-05] MEDS ORDERED: SUPERCREAM 0.870% 15 GM JAR EXT PRN (23:41)
[2020-05-05] MEDS ORDERED: BENZOCAINE 20% AER SPR 82.5 GM CAN EXT PRN (23:41)
[2020-05-05] MEDS ORDERED: SENNA 8.6 MG TAB PO PRN (23:41)
[2020-05-05] MEDS ORDERED: HYDROCORTISONE ACETATE 25 MG SUPP PR PRN (23:41)
[2020-05-05] MEDS ORDERED: DIPHTHERIA/TETANUS/PERTUSSIS 0.5 ML SYR/VIAL IM ONE (23:41)
[2020-05-05] MEDS ORDERED: MAGNESIUM HYDROXIDE SUSP 30 ML UDC PO PRN (23:41)
[2020-05-06] MEDS: KETOROLAC 30 MG/ML VIAL IV PRN ×3 (00:20→13:08)
[2020-05-06] MEDS: OXYTOCIN 20 UNITS in LACTATED RINGER'S 1,000 ML IV SCH ×2 (01:37→08:41)
[2020-05-06] MEDS ORDERED: CITRIC ACID/SODIUM CITRATE 15 ML UDC PO SCH (06:00)
[2020-05-06 06:07] LABS: Basophils # (auto) 0.02 K/uL (0-0.2); Basophils % (auto) 0.1 %; Eosinophils # (auto) 0.01 K/uL (0-0.5); Eosinophils % (auto) 0.1 %; Hematocrit (blood only) 29.8 % (37-47); Hemoglobin 10.3 g/dL (12.0-16.0); Immature Granulocytes # (auto) 0.12 K/uL (0.00-0.02); Immature Granulocytes % (auto) 0.7 %; Mean Corpuscular Hemoglobin 32.3 pg (25-34); Mean Corpuscular Hgb Conc 34.6 g/dL (32-36); Mean Corpuscular Volume 93.4 fL (80-100); Mean Platelet Volume 10.3 fL (7.4-10.4); Monocytes # (auto) 1.11 K/uL (0.11-0.59); Monocytes % (auto) 6.5 %; Neutrophils # (auto) 14.58 K/uL (1.4-6.5); Neutrophils % (auto) 85.6 %; Platelet Count 171 K/uL (130-400); RDW Coefficient of Variation 13.1 % (11.5-14.5); RDW Standard Deviation 44.9 fL (36.4-46.3); Red Blood Count 3.19 M/uL (4.2-5.4); White Blood Count 17.04 K/uL (4.8-10.8)
--- NOTE | 2020-05-06 07:04 | Obstetrical Progress Note ---
Date of Service <Zion Delgadillo MD - Last Filed: 05/06/20 07:42> May 06, 2020 Assessment & Plan <Zion Delgadillo MD - Last Filed: 05/06/20 07:42> (1) Supervision of high-risk : A/P: Serene Charles is a 29 y/o female with T1DM on POD#1 s/p c- section delivery at 39+3 weeks. * Patient feels well today; continue post-anesthesia recovery; OOB after 5pm per anesthesia * Pain well-controlled with oxycodone/acetaminophen 2 tabs q4h prn * PNL: Rh pos, RI, GBS neg, COVID neg * Continue home dose insulin and monitoring * Routine postcesarean care: OOB, ambulation, diet progression as tolerated * After discharge, will have six-week follow-up with Dr. Diego Rodriguez <Zion Delgadillo MD - Last Filed: 05/06/20 07:42> Serene Charles is a 29 y/o female with T1DM on POD#1 s/p delivery at 39+3 weeks. She reports feeling well overall this morning. Mild abdominal cramping and 4/10 pain well managed on analgesics. Chambers catheter still in place. Mild nausea with eating; has not tolerated a full meal yet. Not OOB yet. Not yet passing gas and no bowel movement. Has persistent lochia with some improvement this morning. Review of Systems Denies fever or chills. Denies shortness of breath or cough. Denies chest pain. Denies breast pain. Denies dysuria. Denies leg pain or leg swelling. Denies headache or changes in vision. Physical Exam <Zion Delgadillo MD - Last Filed: 05/06/20 07:42> General: alert, oriented, no acute distress Cardiac: regular rate and rhythm, no murmurs appreciated Respiratory: lungs clear to auscultation bilaterally a/p, no wheezes/rales/rhonchi, no increased work of breathing, symmetrical chest rise, no respiratory distress Abdomen: soft, mildly tender, nondistended, bowel sounds present, surgical incision clean, dry, and intact Uterus: uterine fundus firm, palpable 2cm above umbilicus Lower extremities: no lower extremity edema or swelling, no deep calf pain, Gregor's negative bilaterally Results & Data ([facility]) <Zion Delgadillo MD - Last Filed: 05/06/20 07:42> Vital Signs (Past 12 Hours) Vital Signs Temp Pulse Pulse Resp BP BP Pulse Ox 05/06/20 06:30 18 97 05/06/20 05:25 18 96 05/06/20 04:05 36.5 C 71 18 104/68 96 05/06/20 03:45 18 96 05/06/20 02:45 18 97 05/06/20 01:45 36.6 C 84 18 107/68 97 05/06/20 01:34 93 H 121/64 05/06/20 01:33 36.9 C 90 18 95 05/06/20 01:28 94 H 95 05/06/20 01:23 91 H 115/66 95 05/06/20 01:18 87 94 05/06/20 01:13 90 110/63 95 05/06/20 01:08 89 95 05/06/20 01:03 80 16 107/59 L 94 05/06/20 00:58 89 95 05/06/20 00:53 88 110/62 95 05/06/20 00:48 93 H 95 05/06/20 00:43 99 H 102/58 L 95 05/06/20 00:38 100 H 94 05/06/20 00:33 100 H 18 92/55 L 96 05/06/20 00:28 88 94 05/06/20 00:23 81 18 110/58 L 92 05/06/20 00:18 83 94 05/06/20 00:13 78 16 104/55 L 95 05/06/20 00:08 81 93 05/06/20 00:06 80 89 L 05/06/20 00:03 71 18 103/51 L 94 05/05/20 23:58 79 93 05/05/20 23:53 86 16 104/58 L 94 05/05/20 23:48 101 H 95 05/05/20 23:43 81 16 116/57 L 95 05/05/20 23:38 91 H 93 05/05/20 23:33 37.1 C 90 16 116/55 L 94 05/05/20 22:25 18 05/05/20 22:23 103 H 125/65 95 05/05/20 22:18 88 95 05/05/20 22:13 90 95 05/05/20 22:10 87 128/64 05/05/20 22:08 95 H 90 05/05/20 22:03 91 H 95 05/05/20 22:00 20 05/05/20 21:58 92 H 95 05/05/20 21:53 94 H 97 05/05/20 21:48 94 H 96 05/05/20 21:43 79 96 05/05/20 21:39 71 113/57 L 05/05/20 21:38 73 95 05/05/20 21:33 73 95 05/05/20 21:30 18 05/05/20 21:28 70 93 05/05/20 21:23 71 111/60 93 05/05/20 21:18 73 95 05/05/20 21:15 73 89 L 05/05/20 21:13 82 94 05/05/20 21:12 88 101/60 05/05/20 21:10 74 92/54 L 05/05/20 21:08 86 97 05/05/20 21:05 37.1 C 05/05/20 21:04 94 H 90 05/05/20 21:03 99 H 97 05/05/20 21:00 18 05/05/20 20:58 89 95 05/05/20 20:56 88 97/61 L 05/05/20 20:53 96 H 95 05/05/20 20:48 97 H 90 05/05/20 20:43 81 94 05/05/20 20:38 95 H 110/56 L 93 05/05/20 20:36 82 89 L 05/05/20 20:33 79 93 05/05/20 20:30 20 05/05/20 20:29 74 90 05/05/20 20:28 89 93 05/05/20 20:23 86 109/60 93 05/05/20 20:18 78 93 05/05/20 20:13 81 94 05/05/20 20:08 71 122/58 L 96 05/05/20 20:03 84 94 05/05/20 20:00 18 05/05/20 19:58 92 H 93 05/05/20 19:53 101 H 124/65 95 05/05/20 19:48 75 95 05/05/20 19:46 91 H 112/60 05/05/20 19:43 90 97 05/05/20 19:41 85 114/56 L 05/05/20 19:38 85 98 05/05/20 19:33 86 96 05/05/20 19:31 81 112/60 05/05/20 19:30 20 05/05/20 19:29 96 H 105/58 L 05/05/20 19:28 71 87/51 L 97 05/05/20 19:24 66 86/49 L 05/05/20 19:23 70 97 05/05/20 19:22 70 89/51 L 05/05/20 19:18 78 96 05/05/20 19:13 82 99 05/05/20 19:08 87 99 05/05/20 19:07 82 102/63 05/05/20 19:05 37.0 C 18 05/05/20 19:03 70 97 <Tania Cortez MD, FACOG - Last Filed: 05/06/20 07:58> Co-Signing Physician Notes Resident Physician Supervision Note: I was present with Dr. Delgadillo during the history and exam. I discussed the case with the resident and agree with the findings and plan as documented in the note. Any exceptions or clarifications are listed here: [None] Documented By: Tania Cortez MD, FACOG Resident Activity Tracking <Zion Delgadillo MD - Last Filed: 05/06/20 07:42> Resident Involvement: Resident Care Provided Care Provided: OB Delivery
[2020-05-06] MEDS ORDERED: INSULIN ASPART PER UNIT SQ SCH (09:00)
[2020-05-06] MEDS: PRENATAL VITAMIN 1 TAB PO SCH (09:11)
[2020-05-06] MEDS: SIMETHICONE 80 MG CHEW PO SCH ×4 (09:11→20:04)
[2020-05-06] MEDS: FERROUS SULFATE 325 MG TAB PO SCH (09:11)
[2020-05-06] MEDS: DOCUSATE SODIUM 100 MG CAP PO SCH ×2 (09:11→20:04)
[2020-05-06] MEDS ORDERED: LACTATED RINGER'S 1,000 ML IV SCH (16:00)
[2020-05-06] MEDS ORDERED: KETOROLAC 30 MG/ML VIAL IV PRN (17:10)
[2020-05-06] MEDS ORDERED: MEPERIDINE HCL 50 MG/ML CARP IV PRN (17:10)
[2020-05-06] MEDS ORDERED: diphenhydrAMINE Capsule 25 MG CAP PO PRN (17:10)
[2020-05-06] MEDS ORDERED: ZOLPIDEM TARTRATE 5 MG TAB PO PRN (17:10)
[2020-05-06] MEDS ORDERED: PROMETHAZINE HCL 25 MG in SODIUM CHLORIDE 0.9% 50 ML IV PRN (17:10)
[2020-05-06] MEDS ORDERED: diphenhydrAMINE 50 MG/ML VIAL IV PRN (17:10)
[2020-05-06] MEDS ORDERED: ONDANSETRON INJ 2 MG/ML 2 ML VIAL IV PRN (17:10)
[2020-05-06] MEDS: oxyCODONE/ACETAMINOPHEN 5mg/325mg TAB PO PRN ×2 (17:14→21:50)
[2020-05-06] MEDS: IBUPROFEN 600 MG TAB PO PRN ×2 (17:14→21:51)
[2020-05-06] MEDS ORDERED: bisacodyL 5 MG TABEC PO SCH (20:00)
[2020-05-07] MEDS: IBUPROFEN 600 MG TAB PO PRN ×2 (03:43→10:35)
[2020-05-07] MEDS: oxyCODONE/ACETAMINOPHEN 5mg/325mg TAB PO PRN ×2 (03:43→10:35)
[2020-05-07 06:39] LABS: Hematocrit (blood only) 27.6 % (37-47); Hemoglobin 9.5 g/dL (12.0-16.0)
--- NOTE | 2020-05-07 07:14 | Obstetrical Progress Note ---
Date of Service <Zion Delgadillo MD - Last Filed: 05/07/20 07:14> May 07, 2020 Assessment & Plan <Zion Delgadillo MD - Last Filed: 05/07/20 07:14> (1) Supervision of high-risk : A/P: Serene Charles is a 29 y/o female with T1DM on POD#1 s/p c- section delivery at 39+3 weeks. * Patient feels well today; eating well, voiding well, ambulating well * Pain well-controlled with oxycodone/acetaminophen 2 tabs q4h prn * PNL: Rh pos, RI, GBS neg, COVID neg * Routine postcesarean care: OOB, ambulation, diet progression as tolerated * After discharge, will have six-week follow-up with Dr. Niru Rodriguez <Zion Delgadillo MD - Last Filed: 05/07/20 07:14> Serene Charles is a 29 y/o female with T1DM on POD#1 s/p delivery at 39+3 weeks. She reports feeling well overall this morning. Mild abdominal cramping and 4/10 pain well managed on analgesics. Chambers catheter still in place. Tolerating meals without difficulty. Ambulating without difficulty. No BM but + flatus. Has persistent lochia with some improvement this morning. Review of Systems Denies fever or chills. Denies shortness of breath or cough. Denies chest pain. Denies breast pain. Denies dysuria. Denies leg pain or leg swelling. Denies headache or changes in vision. Physical Exam <Zion Delgadillo MD - Last Filed: 05/07/20 07:14> General: alert, oriented, no acute distress Cardiac: regular rate and rhythm, no murmurs appreciated Respiratory: lungs clear to auscultation bilaterally a/p, no wheezes/rales/rhonchi, no increased work of breathing, symmetrical chest rise, no respiratory distress Abdomen: soft, minimally tender, nondistended, bowel sounds present, surgical incision clean, dry, and intact Uterus: see attending documentation Lower extremities: no lower extremity edema or swelling, no deep calf pain, Gregor's negative bilaterally Results & Data ([facility]) <Zion Delgadillo MD - Last Filed: 05/07/20 07:14> Vital Signs (Past 12 Hours) Vital Signs Temp Pulse Resp BP Pulse Ox 05/07/20 00:10 36.7 C 89 16 107/70 96 05/06/20 19:20 36.7 C 95 H 16 100/65 96 <Jess Arias MD, FACOG - Last Filed: 05/07/20 07:20> Co-Signing Physician Notes Resident Physician Supervision Note: I interviewed and examined the patient. Discussed with Dr. Donovan and agree with findings and plan as documented in the note. Any exceptions or clarifications are listed here: Incision CDI Documented By: Jess Arias MD, FACOG Resident Activity Tracking <Zion Delgadillo MD - Last Filed: 05/07/20 07:14> Resident Involvement: Resident Care Provided Care Provided: Adult ED
[2020-05-07] MEDS: NovoLOG INSULIN PUMP SCH ×2 (07:15→12:03)
[2020-05-07] MEDS: PRENATAL VITAMIN 1 TAB PO SCH (08:28)
[2020-05-07] MEDS: DOCUSATE SODIUM 100 MG CAP PO SCH ×2 (08:28→19:46)
[2020-05-07] MEDS: SIMETHICONE 80 MG CHEW PO SCH ×3 (08:28→19:46)
[2020-05-07] MEDS: FERROUS SULFATE 325 MG TAB PO SCH (08:28)
[2020-05-07] MEDS ORDERED: bisacodyL 10 MG SUPP PR PRN (23:41)
[2020-05-08] MEDS: IBUPROFEN 600 MG TAB PO PRN (05:27)
[2020-05-08] MEDS: oxyCODONE/ACETAMINOPHEN 5mg/325mg TAB PO PRN (05:28)
--- NOTE | 2020-05-08 08:11 | Obstetrical Progress Note ---
Date of Service May 08, 2020 Assessment & Plan (1) Diabetes mellitus type 1: (2) delivery delivered: Doing well. Plan d/c. Instructions reviewed. Insulin management per primary care physician/endo--has been managing her pump on her own. Questions answered. f/u in 6 weeks. Day #:: 2 Subjective Ambulation: ambulating normally Passing Gas:: Yes Diet Tolerance:: regular diet Lochia:: Small Feeding Type:: breast feeding Pain well controlled. Physical Exam Constitutional WD/WN, vitals as above Respiratory normal respiratory effort, lungs clear to auscultation Cardiovascular RRR, no murmur, no edema Extremities: + edema (tr) Gastrointestinal (Abdomen) soft, nt, nd, ff/nt at u incision c/d/i Results & Data ([facility]) Vital Signs (Past 12 Hours) Vital Signs Temp Pulse Resp BP Pulse Ox 05/08/20 07:54 36.8 C 89 18 127/76 98 05/08/20 00:15 36.8 C 81 18 109/71
[2020-05-08] MEDS: FERROUS SULFATE 325 MG TAB PO SCH (08:40)
[2020-05-08] MEDS: PRENATAL VITAMIN 1 TAB PO SCH (08:40)
[2020-05-08] MEDS: DOCUSATE SODIUM 100 MG CAP PO SCH (08:40)
[2020-05-08] MEDS: SIMETHICONE 80 MG CHEW PO SCH (08:40)
--- NOTE | 2020-05-10 06:55 | Discharge Summary (DS) ---
PRINCIPAL DIAGNOSES: Intrauterine at 40 weeks, history of type 1 diabetes on insulin pump. PRINCIPAL PROCEDURE: Primary low transverse section for intolerance of labor. HISTORY: The patient is a 3, para 1-0-0-1 white female who presented to labor and delivery after persistent tachycardia on nonstress test on May 04. After hydration, the heart pattern became category 1 and she was offered discharge or to continue on with induction of labor since she was scheduled for that to start on the morning of 05/05/2020. She stayed and received low dose Pitocin overnight. Membranes spontaneously ruptured at approximately 0500 hours for clear fluid. She made minimal cervical progress and membranes were actively ruptured at approximately 1300 hours for copious amount of clear fluid. She progressed to 8 cm, dilated, but because of intolerance of labor, the Pitocin could not be increased to achieve adequate contraction pattern and strength. She underwent a primary low transverse section without complications. There were multiple loops of cord, one over the baby's shoulder, loose nuchal cord as well as a cord around the wrist at the time of delivery. The was vigorous upon delivery; however. She had an uncomplicated postop course. She was eating a regular diet and ambulating without difficulty on her 1st postop day. She was voiding also without difficulty. Pain was well controlled with oral pain meds. Her blood sugars remained well controlled on her insulin pump. Her hemoglobin on admission was 12.8, hematocrit of 36.7. First postop day hemoglobin of 10.3, hematocrit 29.8. Second postop day hemoglobin of 9.5, hematocrit of 27.6. She was sent home in good condition with prescriptions for Percocet 1-2 tablets p.o. q. 4 hours p.r.n. pain, Motrin 600 mg p.o. q. 4 hours p.r.n. pain. She is to call for temperature of 101 degrees or higher, heavy vaginal bleeding, burning with urination, increased redness, drainage or pain in her incision, calf tenderness or any other concerns. She is to be seen in the office in 6 weeks for followup visit.
== END 2020-05-08 10:20 | disposition home or self-care (01) | DRG 788 ==
LOC: OPB 16:51 → 4S1 16:52 → 4S2 05-06 01:45